=== PATIENT | female | born 1950 | race Caucasian/White ===

== ENCOUNTER 2022-10-12 22:09 | Emergency (ER) | payer OTHER ==
--- OUTSIDE RECORDS SUMMARY | 2022-10-12 22:20 | XMS REPORT | Continuity of Care Document ---
:1950 Author Organization [facility] t Address [address] [place] [address] [place] [id number] Care Team Providers Name Role Phone Sisi Canseco Primary Care Physician Sisi Canseco Attending Clinician Unavailable DAYAMI SINGH Attending Clinician Unavailable Carolyn Mcmillan MD Attending Clinician SHASTA LOWERY Attending Clinician Unavailable POPPY KELLEY Attending Clinician Unavailable Poppy Kelley MD Attending Clinician Geoff Ann MD Attending Clinician Hannah Vizcaino MD Attending Clinician Nhi Carrera MD Attending Clinician NHI CARRERA Attending Clinician Unavailable Nhi Carrera MD Attending Clinician JANI JOYNER Attending Clinician Unavailable Moy Salazar MD Attending Clinician BIN VIRGEN Attending Clinician Unavailable Bin Best Attending Clinician Doctor Unassigned, [place] Attending Clinician Unavailable Jani Joyner MD Attending Clinician DAYAMI SINGH M.D. Attending Clinician Unavailable POPPY KELLEY Admitting Clinician Unavailable Payers Payer Name Policy Type Policy Number Effective Date Expiration Date S frank AETNA CHOICE [id number] 2021 2021 POS II 00:00:00 00:00:00 AETNA MEDICARE [id number] 2021 PPO 00:00:00 AETNA MEDICARE [id number] 2021 HMO POS PPO 00:00:00 AETNA MEDICARE C1 [id number] 2015 Common Spi rit PPO 00:00:00 - [facility] MEDICARE PLAN [id number] PPO - AETNA Problems Condition Condition Condition Status Onset Resolution Last Treating Co mments Source Name Details Category Date Date Treatment Clinician Date Cardiac Cardiac Disease Active [facility] St sarcoidosi sarcoidosi 2-25 Kiersten kes s s 00:00: Medical 00 [place] Pacemaker Pacemaker Disease Active [facility] St 2-25 [facility] 00[facility] Medical 00 Center CHB CHB Disease Active [facility] (complete (complete 5-12 [place] [facility] heart heart 00:00: of block) block) 00 Medicin (HCCode) (HCCode) e PMT PMT Disease Active [facility] (pacemaker (pacemaker 5-12 Co llege -mediated -mediated 00:00: of tachycardi tachycardi 00 Me dicin a) a) e Seborrheic Seborrheic Problem Active U T keratosis keratosis Phys ici ans Actinic Actinic Problem Active [facility] keratoses keratoses Phys ici ans Onychoschi Onychoschi Problem Active U T miguel miguel Physici ans [id number] Menopausal Problem Co mmon and Spirit perimenopa - CHI usal [facility] [id number] Other Problem Common chronic Spirit pain - [facility] [id number] Primary Problem Common hypertensi Spirit on - [facility] [id number] Migraine Problem Comm on without Spirit aura and - [facility] without [facility] migrainosu Medica l s, not Center intractabl e [id number] Environmen Problem Co mmon santos Spirit allergies - [facility] [id number] 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 - CHI n internal St cardiac [facility] defibrilla Medica l tor (ICD) Center and pacemaker Allergies, Adverse Reactions, Alerts Allergy Allergy Status Severity Reaction(s) Onset Inactive Treating Comm ents Source Name Type Date Date Clinician TREE Allergy Active Med Other [facility] 09[facility]13 [facility] LM, 00:00: Medical CEDAR 00 Center Tree Drug Active Other (See migraine [facility] Pollen-[facility] Allergy Comments) 09-13 [facility] lm, 00:00: Medical [place] 00 [facility] [place] Allergy Active [facility] Cr[place] to 09-13 Health llia substanc 00:00: (Republic e 00 Elm) Skin Test Codeine Propensi Active Other (See Sleep Met hodi ty to Comments) 09-08 st adverse 00:00: Hospita reaction 00 l s to drug CODEINE DRUG Active Other-Cmnt Unive rs INGREDI 1-14 ity of 00:00: [place] 00 Medical Branch Codeine Propensi Active Other - See sleepy Un skyla ty to comments 1-14 ity of adverse 00:00: [place] reaction 00 Medical s Branch Codeine Allergy Active Other sleep UT to 5-12 extra Health substanc 00:00: long e 00 Codeine Propensi Active [facility] ty to 5-12 College adverse 00:00: of reaction 00 Medicin s to e drug CODEINE Allergy Active Med Other [facility]12 [facility] 00[facility] Medical 00 Center Codeine Drug Active Other (See sleepy CHI S t Allergy Comments) 11-30 [facility] 00:[facility]: Medical 00 Center NO KNOWN Drug Active Univers ALLERGIE Class ity of [facility] [place] [facility] [place] Social History Social Habit Start Date Stop Date Quantity Comments Source History of Common Spirit - Tobacco Use [facility] History SDOH [facility] Alcohol Frequency Medical Center History SDOH [facility] Alcohol Std Medical Cente r Drinks History SDOH [facility] Alcohol Binge Medical [facility] [facility] Exposure to 2022-05-08 2022-05-18 Not sure [facility] SARS-CoV-2 00:00:00 14:05:00 (event) Alcohol intake 2021-09-18 2021-09-18 Current drinker of [facility] 00:[facility] 00[facility]00:00 alcohol (finding) [facility] Center Tobacco use and 2021-09-13 2021-09-[address] Kiersten kes exposure 00:00:00 00:00:00 [facility] Alcohol Comment 2021-09-13 2021-09-[address] Kiersten kes 00:00:00 00:00:00 [facility] Sex Ass[birth year] At [birth year] [facility] 00:00[facility]00 00:[facility]:00 Hospital Smoking Status Start Date Stop Date Source Tobacco smoking [facility] consumption unknown Former Smoker 2022-05-29 00:00:00 2022-05-29 Common Spiri t [facility] nter Never smoked tobacco [facility] Medications Ordered Filled Start Stop Current Ordering Indication Dosage Frequency Signature Comments Components Source Medication Medication Date Date Medication? Clinician (SIG) Name Name Paxlovid Paxlovid 2021-07 No 3{table BID Paxlovid (300/100) (300/100) 1-09 ts} (300/100) 20 x 150 MG 20 x 150 MG 00:00: 20 x 150 & 10 x & 10 x 00 MG & 10 x 100MG 100MG 100MG SUMAtriptan Yes 50mg Take 50 mg UT (Imitrex) 8-01 by mouth. Healt h 50 MG 10:36: tablet 38 SUMAtriptan 0 Yes 50mg Take 50 mg UT (Imitrex) 8-01 by mouth. Healt h 50 MG 10:36: tablet 38 SUMAtriptan 0 Yes 50mg Take 50 mg UT (Imitrex) 8-01 by mouth. Healt h 50 MG 10:36: tablet 38 carvedilol Yes 6.25mg Q.5D Take 6.25 UT (Coreg) 7-25 mg by Health 6.25 MG 00:00: mouth in tablet 00 the morning and 6.25 mg before bedtime. carvedilol 2021-0 Yes 6.25mg Q.5D Take 6.25 UT (Coreg) 7-25 mg by Health 6.25 MG 00:00: mouth in tablet 00 the morning and 6.25 mg before bedtime. carvedilol 2021-0 Yes 6.25mg Q.5D Take 6.25 UT (Coreg) 7-25 mg by Health 6.25 MG 00:00: mouth in tablet 00 the morning and 6.25 mg before bedtime. Fyavolv Yes 1{tbl} QD Take 1 UT 0.5-2.5 7-05 tablet by Health MG-MCG 00:00: mouth 1 tablet 00 (one) time each day. Fyavolv 0 Yes 1{tbl} QD Take 1 UT 0.5-2.5 7-05 tablet by Health MG-MCG 00:00: mouth 1 tablet 00 (one) time each day. Fyavolv Yes 1{tbl} QD Take 1 UT 0.5-2.5 7-05 tablet by Health MG-MCG 00:00: mouth 1 tablet 00 (one) time each day. predniSONE Yes See UT (Deltasone) 7-04 administra He alth 1 MG tablet 00:00: tion 00 instructio ns. PLEASE SEE ATTACHED FOR DETAILED DIRECTIONS predniSONE 2021-0 Yes See UT (Deltasone) 704 administra He alth 1 MG tablet 00:00: tion 00 instructio ns. PLEASE SEE ATTACHED FOR DETAILED DIRECTIONS predniSONE 0 Yes See UT (Deltasone) 7-04 administra He alth 1 MG tablet 00:00: tion 00 instructio ns. PLEASE SEE ATTACHED FOR DETAILED DIRECTIONS mycophenola Yes 500mg Q.5D Take 500 U T te 7-01 mg by Health (Cellcept) 00:00: mouth in 500 MG 00 the tablet morning and 500 mg before bedtime. mycophenola 2021-0 Yes 500mg Q.5D Take 500 U T te 7-01 mg by Health (Cellcept) 00:00: mouth in 500 MG 00 the tablet morning and 500 mg before bedtime. mycophenola 2021-0 Yes 500mg Q.5D Take 500 U T te 7-01 mg by Health (Cellcept) 00:00: mouth in 500 MG 00 the tablet morning and 500 mg before bedtime. Eliquis 5 Yes 5mg Q.5D Take 5 mg UT MG tablet 5-31 by mouth 00:00: (two) 00 times a day. Eliquis 5 2021-0 Yes 5mg Q.5D Take 5 mg UT MG tablet 5-31 by mouth 2 Heal th 00:00: (two) 00 times a day. Eliquis 5 2021-0 Yes 5mg Q.5D Take 5 mg UT MG tablet 5-31 by mouth 2 Heal th 00:00: (two) 00 times a day. SUMAtriptan 2021-0 Yes 50mg Take [address] (IMITREX) 2-27 by mouth [facility] 50 MG 11:37: once as Medical tablet 04 needed for Center Headaches. cetirizine 2021-0 Yes 10mg Take [address] (ZyrTEC) 10 2-27 by mouth Luke s MG tablet 11:37: as needed Med ical 04 for Center Allergies. valsartan-h 2021-0 Yes 1{tbl} QD Take [address] ydrochlorot 2-27 tablet by Ilana es hiazide 11:37: mouth Medical (DIOVAN-HCT 04 daily. Center ) 320-25 mg per tablet Missing or [address] [facility] [facility] Non-Formula 2-27 replacemen Kiersten kes ry 11:37: t (name Medical Medication [address] to be given dos) . apixaban 2021-0 Yes 5mg Q.5D Take [address] (Eliquis) 5 2-27 by mouth 2 Kiersten kes mg Tab 11:37: (two) Medical tablet 04 times Center daily. SUMAtriptan 2021-0 Yes 50mg Take [address] (IMITREX) 2-27 by mouth [facility] 50 MG 11:37: once as Medical tablet 04 needed for Center Headaches. cetirizine 2021-0 Yes 10mg Take [address] (ZyrTEC) 10 2-27 by mouth Luke s MG tablet 11:37: as needed Med ical 04 for Center Allergies. valsartan-h 2021-0 Yes 1{tbl} QD Take [address] ydrochlorot 2-27 tablet by Ilana es hiazide 11:37: mouth Medical (DIOVAN-HCT 04 daily. Center ) 320-25 mg per tablet Missing or 2021-[address] Non-Formula 2-27 replacemen Kiersten kes ry 11:37: t (name Medical Medication [address] to be given dos) . apixaban 2022-0 Yes 5mg Q.5D Take [address] (Eliquis) 5 2-27 by mouth 2 Kiersten kes mg Tab 11:37: (two) Medical tablet 04 times Center daily. SUMAtriptan 2022-0 Yes 50mg Take [address] (IMITREX) 2-27 by mouth [facility] 50 MG 11:37: once as Medical tablet 04 needed for Center Headaches. cetirizine 2022-0 Yes 10mg Take [address] (ZyrTEC) 10 2-27 by mouth Luke s MG tablet 11:37: as needed Med ical 04 for Center Allergies. valsartan-h 2022-0 Yes 1{tbl} QD Take [address] ydrochlorot 2-27 tablet by Ilana es hiazide 11:37: mouth Medical (DIOVAN-HCT 04 daily. Center ) 320-25 mg per tablet Missing or [address] [facility] Non-Formula 2-27 replacemen Kiersten kes ry 11:37: t (name Medical Medication [address] to be given dos) . apixaban 2022-0 Yes 5mg Q.5D Take [address] (Eliquis) 5 2-27 by mouth 2 Kiersten kes mg Tab 11:37: (two) Medical tablet 04 times Center daily. SUMAtriptan 2-0 Yes 50mg Take [address] (IMITREX) 2-27 by mouth [facility] 50 MG 11:37: once as Medical tablet 04 needed for Center Headaches. cetirizine 2-0 Yes 10mg Take [address] (ZyrTEC) 10 2-27 by mouth Luke s MG tablet 11:37: as needed Med ical 04 for Center Allergies. valsartan-h 2022-0 Yes 1{tbl} QD Take [address] ydrochlorot 2-27 tablet by Ilana es hiazide 11:37: mouth Medical (DIOVAN-HCT 04 daily. Center ) 320-25 mg per tablet Missing or 2021-[address] Non-Formula 2-27 replacemen Kiersten kes ry 11:37: t (name Medical Medication [address] to be given dos) . apixaban 2022-0 Yes 5mg Q.5D Take [address] (Eliquis) 5 2-27 by mouth 2 Kiersten kes mg Tab 11:37: (two) Medical tablet 04 times Center daily. SUMAtriptan 2022-0 Yes 50mg Take [address] (IMITREX) 2-27 by mouth [facility] 50 MG 11:37: once as Medical tablet 04 needed for Center Headaches. cetirizine 2-0 Yes 10mg Take [address] (ZyrTEC) 10 2-27 by mouth Luke s MG tablet 11:37: as needed Med ical 04 for Center Allergies. valsartan-h 2021-0 Yes 1{tbl} QD Take [address] ydrochlorot 2-27 tablet by Ilana es hiazide 11:37: mouth Medical (DIOVAN-HCT 04 daily. Center ) 320-25 mg per tablet Missing or Yes Hormone [facility] Non-Formula 2-27 replacemen Kiersten kes ry 11:37: t (name Medical Medication [address] to be given dos) . apixaban 2-0 Yes 5mg Q.5D Take [address] (Eliquis) 5 2-27 by mouth 2 Kiersten kes mg Tab 11:37: (two) Medical tablet 04 times Center daily. SUMAtriptan 2021-0 Yes 50mg Take [address] (IMITREX) 2-27 by mouth [facility] 50 MG 11:37: once as Medical tablet 04 needed for Center Headaches. cetirizine 2-0 Yes 10mg Take [address] (ZyrTEC) 10 2-27 by mouth Luke s MG tablet 11:37: as needed Med ical 04 for Center Allergies. valsartan-h 2-0 Yes 1{tbl} QD Take [address] ydrochlorot 2-27 tablet by Ilana es hiazide 11:37: mouth Medical (DIOVAN-HCT 04 daily. Center ) 320-25 mg per tablet Missing or [address] [facility] Non-Formula 2-27 replacemen Kiersten kes ry 11:37: t (name Medical Medication [address] to be given dos) . apixaban 2022-0 Yes 5mg Q.5D Take [address] (Eliquis) 5 2-27 by mouth 2 Kiersten kes mg Tab 11:37: (two) Medical tablet 04 times Center daily. amLODIPine 2021-0 2022- No 5mg Q.5D Take [address] (NORVASC) 5 09-17- by mouth 2 L ukes MG tablet 11:37: 00:00 (two) Medica l 04 :00 times Center daily. amLODIPine 2021-0 2022- No 5mg Q.5D Take [address] (NORVASC) 5 09-17- by mouth 2 L ukes MG tablet 11:37: 00:00 (two) Medica l 04 :00 times Center daily. amLODIPine 2021-0 2022- No 5mg Q.5D Take [address] (NORVASC) 5 09-17- by mouth 2 L ukes MG tablet 11:37: 00:00 (two) Medica l 04 :00 times Center daily. amLODIPine 2021-0 2022- No 5mg Q.5D Take [address] (NORVASC) 5 -17 09- by mouth 2 L ukes MG tablet 11:37: 00:00 (two) Medica l 04 :00 times Center daily. amLODIPine 2021-0 2022- No 5mg Q.5D Take [address] (NORVASC) 5 09-17- by mouth 2 L ukes MG tablet 11:37: 00:00 (two) Medica l 04 :00 times Center daily. valsartan-h Yes TAKE 1 UT ydroCHLOROt 1-05 TABLET BY [facility] lth hiazide 00:00: MOUTH (Diovan-HCT 00 EVERY DAY ) 320-25 MG for 90 tablet valsartan-h Yes TAKE 1 UT ydroCHLOROt 1-05 TABLET BY a lt hiazide 00:00: MOUTH (Diovan-HCT 00 EVERY DAY ) 320-25 MG for 90 tablet valsartan-h Yes TAKE 1 UT ydroCHLOROt 1-05 TABLET BY [facility] hiazide 00:00: MOUTH (Diovan-HCT 00 EVERY DAY ) 320-25 MG for 90 tablet norethindro 2020-07 Yes 1{tbl} 1 tablet. Methodi ne ac-eth 0-13 [facility] estradioL 00:00: Hospita (Fyavolv) 00 l 0.5-2.5 mg-mcg per tablet norethindro 2020-07 Yes 1{tbl} 1 tablet. Methodi ne ac-eth 0-13 st estradioL 00:00: Hospita (Fyavolv) 00 l 0.5-2.5 mg-mcg per tablet norethindro 2020-07 Yes 1{tbl} 1 tablet. Methodi ne ac-eth 0-13 st estradioL 00:00: Hospita (Fyavolv) 00 l 0.5-2.5 mg-mcg per tablet norethindro 2020-07 Yes 1{tbl} 1 tablet. Methodi ne ac-eth 0-13 [facility] estradioL 00:00: Hospita (Fyavolv) 00 l 0.5-2.5 mg-mcg per tablet norethindro 2020-07 Yes 1{tbl} 1 tablet. Methodi ne ac-eth 0-13 st estradioL 00:00: Hospita (Fyavolv) 00 l 0.5-2.5 mg-mcg per tablet avolv avolv 2020-07 No 1{table QD Fyavolv 0.5-2.5 0.5-2.5 0-13 t} 0.5-2.5 MG-MCG MG-MCG 00:00: MG-MCG avolv avolv 2020-07 No 1{table QD Fyavolv 0.5-2.5 0.5-2.5 0-13 t} 0.5-2.5 MG-MCG MG-MCG 00:00: MG-MCG 00 avolv Fyavolv 2020-07 No 1{table QD Fyavolv 0.5-2.5 0.5-2.5 0-13 t} 0.5-2.5 MG-MCG MG-MCG 00:00: MG-MCG 00 avolv avolv 2020-07 No 1{table QD Fyavolv 0.5-2.5 0.5-2.5 0-13 t} 0.5-2.5 MG-MCG MG-MCG 00:00: MG-MCG 00 avolv avolv 2020-07 No 1{table QD 0.5-2.5 0.5-2.5 0-13 t} MG-MCG MG-MCG 00:00: 00 norethindro 2020-07 Yes 1{tbl} 1 tablet. Methodi ne ac-eth 0-13 [facility] estradioL 00:00: Hospita (Fyavolv) 00 l 0.5-2.5 mg-mcg per tablet amLODIPine 2020-0 Yes 1{tbl} 1 tablet. Methodi (NORVASC) 5 8-12 st mg tablet 00:00: Hospita 00 l amLODIPine 2020-0 Yes 1{tbl} 1 tablet. Methodi (NORVASC) 5 8-12 st mg tablet 00:00: Hospita 00 l amLODIPine 2020-0 Yes 1{tbl} 1 tablet. Methodi (NORVASC) 5 8-12 st mg tablet 00:00: Hospita 00 l amLODIPine 2020-0 Yes 1{tbl} 1 tablet. Methodi (NORVASC) 5 8-12 st mg tablet 00:00: Hospita 00 l amLODIPine 2020-0 Yes 1{tbl} 1 tablet. Methodi (NORVASC) 5 8-12 st mg tablet 00:00: Hospita 00 l amLODIPine 2020-0 Yes 1{tbl} 1 tablet. Methodi (NORVASC) 5 8-12 st mg tablet 00:00: Hospita 00 l valsartan-h 2020-1 Yes 1{tbl} QD Take 1 Me thodi ydrochlorot 2-[address] hiazide 00:00: mouth Hospita (DIOVAN-HCT 00 daily. l ) 320-25 mg per tablet valsartan-h 2019- Yes 1{tbl} QD Take 1 Me thodi ydrochlorot 2-[address] hiazide 00:00: mouth Hospita (DIOVAN-HCT 00 daily. l ) 320-25 mg per tablet valsartan-h 2020- Yes 1{tbl} QD Take 1 Me thodi ydrochlorot 2-[address] hiazide 00:00: mouth Hospita (DIOVAN-HCT 00 daily. l ) 320-25 mg per tablet valsartan-h 2019- Yes 1{tbl} QD Take 1 Me thodi ydrochlorot 2-[address] hiazide 00:00: mouth Hospita (DIOVAN-HCT 00 daily. l ) 320-25 mg per tablet valsartan-h 2019-07 Yes 1{tbl} QD Take 1 Me thodi ydrochlorot 2-[address] hiazide 00:00: mouth Hospita (DIOVAN-HCT 00 daily. l ) 320-25 mg per tablet valsartan-h 2019-07 Yes 1{tbl} Take 1 Un skyla ydrochlorot 2-22 tablet by ity of hiazide 00:00: mouth [place] 320-25 mg 00 daily. Medical per tablet Branch valsartan-h 2019-07 Yes 1{tbl} Take 1 Un skyla ydrochlorot 2-22 tablet by ity of hiazide 00:00: mouth [place] 320-25 mg 00 daily. Medical per tablet Branch valsartan-h 2019-07 Yes 1{tbl} Take 1 Un skyla ydrochlorot 2-22 tablet by ity of hiazide 00:00: mouth [place] 320-25 mg 00 daily. Medical per tablet Branch valsartan-h 2019-07 Yes 1{tbl} Take 1 Un skyla ydrochlorot 2-22 tablet by ity of hiazide 00:00: mouth [place] 320-25 mg 00 daily. Medical per tablet Branch valsartan-h 2019-07 Yes 1{tbl} Take 1 Un skyla ydrochlorot 2-22 tablet by ity of hiazide 00:00: mouth [place] 320-25 mg 00 daily. Medical per tablet Branch valsartan-h 2019-07 Yes 1{tbl} Take 1 Un skyla ydrochlorot 2-22 tablet by ity of hiazide 00:00: mouth [place] 320-25 mg 00 daily. Medical per tablet Branch valsartan-h 2019-07 Yes 1{tbl} Take 1 Un skyla ydrochlorot 2-22 tablet by ity of hiazide 00:00: mouth [place] 320-25 mg 00 daily. Medical per tablet Branch valsartan-h 2019-07 Yes 1{tbl} Take 1 Un skyla ydrochlorot 2-22 tablet by ity of hiazide 00:00: mouth [place] 320-25 mg 00 daily. Medical per tablet Branch valsartan-h 2019-07 Yes 1{tbl} Take 1 Un skyla ydrochlorot 2-22 tablet by ity of hiazide 00:00: mouth [place] 320-25 mg 00 daily. Medical per tablet Branch valsartan-h 2019-07 Yes 1{tbl} QD Take 1 Me thodi ydrochlorot 2-[address] hiazide 00:00: mouth Hospita (DIOVAN-HCT 00 daily. l ) 320-25 mg per tablet amLODIPine 2019-07 Yes 5mg Take 5 mg Un skyla 5 mg tablet 0-25 by mouth ity of 00:00: daily. [place] [facility] amLODIPine 2019-07 Yes 5mg Take 5 mg Un skyla 5 mg tablet 0-25 by mouth ity of 00:00: daily. [place] [facility] amLODIPine 2019-07 Yes 5mg Take 5 mg Un skyla 5 mg tablet 0-25 by mouth ity of 00:00: daily. [place] [facility] amLODIPine 2019-07 Yes 5mg Take 5 mg Un skyla 5 mg tablet 0-25 by mouth ity of 00:00: daily. [place] [facility] amLODIPine 2019-07 Yes 5mg Take 5 mg Un skyla 5 mg tablet 0-25 by mouth ity of 00:00: daily. [place] [facility] amLODIPine 2019-07 Yes 5mg Take 5 mg Un skyla 5 mg tablet 0-25 by mouth ity of 00:00: daily. [place] [facility] amLODIPine 2019-07 Yes 5mg Take 5 mg Un skyla 5 mg tablet 0-25 by mouth ity of 00:00: daily. [place] [facility] amLODIPine 2019-07 Yes 5mg Take 5 mg Un skyla 5 mg tablet 0-25 by mouth ity of 00:00: daily. [place] [facility] amLODIPine 2019-07 Yes 5mg Take 5 mg Un skyla 5 mg tablet 0-25 by mouth ity of 00:00: daily. [place] [facility] Cetirizine Yes Take by [facility] (ZYRTEC 8-20 mouth College OR) 19:15: daily. of 22 Medicin e valsartan-h Yes 1{tbl} Take 1 Tab [facility] ydrochlorot 8-20 by mouth [facility] hiazide 00:00: daily. of (DIOVAN-HCT 00 Medicin ) 320-25 MG e per tablet amlodipine 2020-0 Yes 5mg Take 1 Tab [facility] (NORVASC) 5 5-12 by mouth Lula ege MG tablet 00:00: daily. of 00 Medicin e amlodipine 2020-0 Yes 5mg Take 1 Tab [facility] (NORVASC) 5 5-12 by mouth Lula ege MG tablet 00:00: daily. of 00 Medicin e Diclofenac 2020-0 Yes daily. Unive rs Sodium 5-02 ity of (VOLTAREN) 00:00: [place] 1 % gel 00 Medical Branch Diclofenac 2020-0 Yes daily. Unive rs Sodium 5-02 ity of (VOLTAREN) 00:00: [place] 1 % gel 00 Medical Branch Diclofenac 2020-0 Yes daily. Unive rs Sodium 5-02 ity of (VOLTAREN) 00:00: [place] 1 % gel 00 Medical Branch Diclofenac 2020-0 Yes daily. Unive rs Sodium 5-02 ity of (VOLTAREN) 00:00: [place] 1 % gel 00 Medical Branch Diclofenac 2020-0 Yes daily. Unive rs Sodium 5-02 ity of (VOLTAREN) 00:00: [place] 1 % gel 00 Medical Branch Diclofenac 2020-0 Yes daily. Unive rs Sodium 5-02 ity of (VOLTAREN) 00:00: [place] 1 % gel 00 Medical Branch Diclofenac 2020-0 Yes daily. Unive rs Sodium 5-02 ity of (VOLTAREN) 00:00: [place] 1 % gel 00 Medical Branch Diclofenac 2020-0 Yes daily. Unive rs Sodium 5-02 ity of (VOLTAREN) 00:00: [place] 1 % gel 00 Medical Branch Diclofenac 2020-0 Yes daily. Unive rs Sodium 5-02 ity of (VOLTAREN) 00:00: [place] 1 % gel 00 Medical Branch Diclofenac 2020-0 Yes daily. [facility] Sodium 1 % 5-02 College GEL 00:00: of 00 Medicin e Diclofenac 2020-0 Yes daily. [facility] [facility] Sodium 1 % 5-02 College GEL 00:00: of 00 Medicin e valsartan-h 2020-0 Yes 1{tbl} Take 1 Tab [facility] ydrochlorot 4-16 by mouth Lula ege hiazide 00:00: daily. of (DIOVAN-HCT 00 Medicin ) 320-25 MG e per tablet valsartan-h 2019-0 2020- No 1{tbl} Take 1 Tab [facility] ydrochlorot 4-16 08-20 by mouth Col lege hiazide 00:00: 00:00 daily. of (DIOVAN-HCT 00 :00 Medicin ) 320-25 MG e per tablet SUMAtriptan 2020-0 Yes 50mg Take 50 mg Univers 50 mg 2-29 by mouth. ity of tablet 00:00: [place] [facility] Branch SUMAtriptan 2020-0 Yes 50mg Take 50 mg Univers 50 mg 2-29 by mouth. ity of tablet 00:00: [place] [facility] SUMAtriptan 2020-0 Yes 50mg Take 50 mg Univers 50 mg 2-29 by mouth. ity of tablet 00:00: [place] [facility] SUMAtriptan 2020-0 Yes 50mg Take 50 mg Univers 50 mg 2-29 by mouth. ity of tablet 00:00: [place] [facility] SUMAtriptan 2020-0 Yes 50mg Take 50 mg Univers 50 mg 2-29 by mouth. ity of tablet 00:00: [place] [facility] SUMAtriptan 2020-0 Yes 50mg Take 50 mg Univers 50 mg 2-29 by mouth. ity of tablet 00:00: [place] [facility] SUMAtriptan 2020-0 Yes 50mg Take 50 mg Univers 50 mg 2-29 by mouth. ity of tablet 00:00: [place] [facility] SUMAtriptan 2020-0 Yes 50mg Take 50 mg Univers 50 mg 2-29 by mouth. ity of tablet 00:00: [address] SUMAtriptan 2020-0 Yes 50mg Take 50 mg Univers 50 mg 2-29 by mouth. ity of tablet 00:00: [place] [facility] sumatriptan 2020-0 Yes 50mg Take 50 mg [facility] (IMITREX) 2-29 by mouth Colleg e 50 MG 00:00: once as of tablet 00 needed. Medicin e sumatriptan 2020-0 Yes 50mg Take 50 mg [facility] (IMITREX) 2-29 by mouth Colleg e 50 MG 00:00: once as of tablet 00 needed. Medicin e Hyzaar TABS Hyzaar TABS Yes U T Physici ans Diovan 320 Diovan 320 Yes UT MG Oral MG Oral Physici Tablet Tablet ans SUMAtriptan SUMAtriptan Yes U T Succinate Succinate Physi ci 25 MG Oral 25 MG Oral ans Tablet Tablet Formula B Formula B Yes UT TABS TABS Physici ans Carvedilol Carvedilol No 1{table BID Carvedilol 6.25 MG 6.25 MG t_with_ 6.25 MG food} amLODIPine amLODIPine No 1{table QD amLODIPine Besylate 5 Besylate 5 t} Besylate 5 MG MG MG Valsartan-h Valsartan-h No Valsartan- ydroCHLOROt ydroCHLOROt hydroCHLOR hiazide hiazide Othiazide 320-25 MG 320-25 MG 320-25 MG Femhrt Femhrt No Femhrt 0.5-2.5 0.5-2.5 0.5-2.5 MG-MCG MG-MCG MG-MCG Prednisone Prednisone No Prednisone 20 mg 20 mg 20 mg Eliquis 5 Eliquis 5 No Eliquis 5 MG MG MG Fyavolv Fyavolv No Fyavolv 0.5-2.5 0.5-2.5 0.5-2.5 MG-MCG MG-MCG MG-MCG Prednisone Prednisone No Prednisone 20 mg 20 mg 20 mg Eliquis 5 Eliquis 5 No Eliquis 5 MG MG MG Carvedilol Carvedilol No 1{table BID Carvedilol 6.25 MG 6.25 MG t_with_ 6.25 MG food} Femhrt Femhrt No Femhrt 0.5-2.5 0.5-2.5 0.5-2.5 MG-MCG MG-MCG MG-MCG SUMAtriptan SUMAtriptan No BID SUMAtripta Succinate Succinate n 50 MG 50 MG Succinate 50 MG amLODIPine amLODIPine No 1{table QD amLODIPine Besylate 5 Besylate 5 t} Besylate 5 MG MG MG Valsartan Valsartan No 1{table QD Valsartan 320 MG 320 MG t} 320 MG Fyavolv Fyavolv No Fyavolv 0.5-2.5 0.5-2.5 0.5-2.5 MG-MCG MG-MCG MG-MCG Prednisone Prednisone No Prednisone 20 mg 20 mg 20 mg Eliquis 5 Eliquis 5 No Eliquis 5 MG MG MG Carvedilol Carvedilol No 1{table BID Carvedilol 6.25 MG 6.25 MG t_with_ 6.25 MG food} Femhrt Femhrt No Femhrt 0.5-2.5 0.5-2.5 0.5-2.5 MG-MCG MG-MCG MG-MCG SUMAtriptan SUMAtriptan No BID SUMAtripta Succinate Succinate n 50 MG 50 MG Succinate 50 MG amLODIPine amLODIPine No 1{table QD amLODIPine Besylate 5 Besylate 5 t} Besylate 5 MG MG MG Valsartan Valsartan No 1{table QD Valsartan 320 MG 320 MG t} 320 MG Fyavolv Fyavolv No Fyavolv 0.5-2.5 0.5-2.5 0.5-2.5 MG-MCG MG-MCG MG-MCG Eliquis 5 Eliquis 5 No Eliquis 5 MG MG MG Prednisone Prednisone No Prednisone 20 mg 20 mg 20 mg Valsartan Valsartan No 1{table QD Valsartan 320 MG 320 MG t} 320 MG Femhrt Femhrt No Femhrt 0.5-2.5 0.5-2.5 0.5-2.5 MG-MCG MG-MCG MG-MCG SUMAtriptan SUMAtriptan No BID SUMAtripta Succinate Succinate n 50 MG 50 MG Succinate 50 MG amLODIPine amLODIPine No 1{table QD amLODIPine Besylate 5 Besylate 5 t} Besylate 5 MG MG MG Carvedilol Carvedilol No 1{table BID Carvedilol 6.25 MG 6.25 MG t_with_ 6.25 MG food} amLODIPine amLODIPine No 1{table QD amLODIPine Besylate 5 Besylate 5 t} Besylate 5 MG MG MG Femhrt Femhrt No Femhrt 0.5-2.5 0.5-2.5 0.5-2.5 MG-MCG MG-MCG MG-MCG SUMAtriptan SUMAtriptan No BID SUMAtripta Succinate Succinate n 50 MG 50 MG Succinate 50 MG Valsartan-h Valsartan-h No 1{table QD Valsartan- ydroCHLOROt ydroCHLOROt t} hydroCHLOR hiazide hiazide Othiazide 320-25 MG 320-25 MG 320-25 MG amLODIPine amLODIPine No 1{table QD amLODIPine Besylate 5 Besylate 5 t} Besylate 5 MG MG MG Femhrt Femhrt No Femhrt 0.5-2.5 0.5-2.5 0.5-2.5 MG-MCG MG-MCG MG-MCG SUMAtriptan SUMAtriptan No BID SUMAtripta Succinate Succinate n 50 MG 50 MG Succinate 50 MG Valsartan-h Valsartan-h No 1{table QD Valsartan- ydroCHLOROt ydroCHLOROt t} hydroCHLOR hiazide hiazide Othiazide 320-25 MG 320-25 MG 320-25 MG Femhrt Femhrt No Femhrt 0.5-2.5 0.5-2.5 0.5-2.5 MG-MCG MG-MCG MG-MCG Valsartan-h Valsartan-h No 1{table QD Valsartan- ydroCHLOROt ydroCHLOROt t} hydroCHLOR hiazide hiazide Othiazide 320-25 MG 320-25 MG 320-25 MG SUMAtriptan SUMAtriptan No BID SUMAtripta Succinate Succinate n 50 MG 50 MG Succinate 50 MG amLODIPine amLODIPine No 1{table QD amLODIPine Besylate 5 Besylate 5 t} Besylate 5 MG MG MG Femhrt Femhrt No Femhrt 0.5-2.5 0.5-2.5 0.5-2.5 MG-MCG MG-MCG MG-MCG Valsartan-h Valsartan-h No 1{table QD Valsartan- ydroCHLOROt ydroCHLOROt t} hydroCHLOR hiazide hiazide Othiazide 320-25 MG 320-25 MG 320-25 MG SUMAtriptan SUMAtriptan No BID SUMAtripta Succinate Succinate n 50 MG 50 MG Succinate 50 MG amLODIPine amLODIPine No 1{table QD amLODIPine Besylate 5 Besylate 5 t} Besylate 5 MG MG MG Femhrt Femhrt No Femhrt 0.5-2.5 0.5-2.5 0.5-2.5 MG-MCG MG-MCG MG-MCG amLODIPine amLODIPine No 1{table QD amLODIPine Besylate 5 Besylate 5 t} Besylate 5 MG MG MG SUMAtriptan SUMAtriptan No BID SUMAtripta Succinate Succinate n 50 MG 50 MG Succinate 50 MG Valsartan-h Valsartan-h No 1{table QD Valsartan- ydroCHLOROt ydroCHLOROt t} hydroCHLOR hiazide hiazide Othiazide 320-25 MG 320-25 MG 320-25 MG Femhrt Femhrt No 0.5-2.5 0.5-2.5 MG-MCG MG-MCG Valsartan-h Valsartan-h No ydroCHLOROt ydroCHLOROt hiazide hiazide 320-25 MG 320-25 MG SUMAtriptan SUMAtriptan No BID Succinate Succinate 50 MG 50 MG amLODIPine amLODIPine No 1{table QD Besylate 5 Besylate 5 t} MG MG SUMAtriptan SUMAtriptan No BID SUMAtripta Succinate Succinate n 50 MG 50 MG Succinate 50 MG Immunizations Ordered Immunization Filled Immunization Date Status Commen ts Source Name Name PFIZER READY TO USE 2021-11-20 Completed [facility]:00 Hospital VACCINATION PFIZER READY TO USE 2021-11-20 Completed [facility] COVID-[facility] 00:00:00 Hospital VACCINATION PFIZER READY TO USE 2021-11-20 Completed [facility] COVID-19 MRNA 00:00:00 Hospital VACCINATION PFIZER READY TO USE 2021-11-20 Completed [facility] COVID-19 MRNA 00:00:00 Hospital VACCINATION PFIZER READY TO USE 2021-11-20 Completed [facility] COVID-19 MRNA 00:00:00 Hospital VACCINATION PFIZER COVID-19 MRNA 2021-06-07 Completed [facility]:00 Hospital PFIZER COVID-19 MRNA 2021-06-07 Completed [facility] 00:00:00 Hospital PFIZER COVID-19 MRNA 2021-06-07 Completed [facility] VACC[facility] 00:00:00 Hospital PFIZER COVID-19 MRNA 2021-06-07 Completed [facility]ACC[facility] 00:00:00 Hospital PFIZER COVID-19 MRNA 2021-06-07 Completed [facility] 00:00:00 Hospital PFIZER COVID-19 MRNA 2021-06-07 Completed [facility] VACCINATION 00:00:00 [facility] FLUZONE HIGH DOSE FLUZONE HIGH DOSE 2021-05-03 [facility] - OVER [facility] OVER [facility] 08:[facility]:00 [facility] FLUZONE HIGH DOSE FLUZONE HIGH DOSE 2021-05-03 Completed [facility] - OVER [facility] OVER 65 08:56:00 [facility] FLUZONE HIGH DOSE FLUZONE HIGH DOSE 2021-05-03 Completed [facility] - OVER [facility] OVER 65 08:56:00 [facility] FLUZONE HIGH DOSE FLUZONE HIGH DOSE 2021-05-03 Completed [facility] - OVER [facility] OVER 65 08:56:00 [facility] FLUZONE HIGH DOSE FLUZONE HIGH DOSE 2021-05-03 Completed [facility] - OVER [facility] OVER 65 08:56:00 [facility] FLUZONE HIGH DOSE FLUZONE HIGH DOSE 2021-05-03 Completed [facility] - OVER [facility] OVER 65 08:56:00 [facility] FLUZONE HIGH DOSE FLUZONE HIGH DOSE 2021-05-03 Completed [facility] - OVER [facility] OVER 65 08:56:00 [facility] FLUZONE HIGH DOSE FLUZONE HIGH DOSE 2021-05-03 Completed [facility] - OVER 65 OVER 65 08:56:00 [place] [id number] 2020-09-10 Completed [facility] 00:00:00 [place] [id number] 2020-09-10 [facility] VACC[facility] 00:00:00 [place] [id number] 2020-09-10 Completed [facility] VACC[facility] 00:00:00 [place] [id number] 2020-09-10 Completed [facility] VACCINATION 00:00:00 [place] [id number] 2020-09-10 Completed [facility] VACCINATION 00:00:00 [place] [id number] 2020-09-10 Completed [facility] VACCINATION 00:00:00 [place] [id number] 2020-08-13 Completed [facility] VACCINATION 00:00:00 [place] [id number] 2020-08-13 Completed [facility] VACCINATION 00:00:00 [place] [id number] 2020-08-13 Completed [facility] VACCINATION 00:00:00 [place] [id number] 2020-08-13 Completed [facility] VACCINATION 00:00:00 [place] [id number] 2020-08-13 Completed [facility] 00:00:00 [facility] COVID-19 2020-08-13 Completed [facility]ACC[facility] 00:00:00 Hospital Vital Signs Vital Name Observation Time Observation Value Comments Source height 2022-05-30 09:20:00 64 [in_i] [facility] weight 2022-05-30 09:20:00 134 [lb_av] [facility] temperature 2022-05-30 09:20:00 97.7 [degF] [facility] bmi 2022-05-30 09:20:00 23 kg/m2 [facility] oximetry 2022-05-30 09:20:00 97 % [facility] Systolic blood 2022-04-25 14:47:00 191 mm[facility]Hg[facility] Diastolic blood 2022-04-25 14:47:00 112 mm[facility]Hg[facility] Heart rate 2022-04-25 14:47:00 67 [facility] 2022-04-25 14:47:00 [facility].78 [facility] height 2022-04-25 14:47:00 [facility]6 [facility] 2022-04-25 14:47:00 [facility]143 [facility] BMI 2022-04-25 14:47:00 [facility]52 [facility]22-[facility]-28 10:20:00 64 [in_i] [facility] weight 2022-02-28 10:20:00 136.8 [lb_av] [facility] temperature 2022-02-28 10:20:00 97.2 [degF] [facility] bmi 2022-02-28 10:20:00 23.48 kg/m2 [facility] oximetry 2022-02-28 10:20:00 98 % [facility] respiratory rate 2022-02-28 10:20:00 16 /min [facility] blood pressure 2022-02-28 10:20:00 138 mm[Hg] [facility] blood pressure 2022-02-28 10:20:00 80 mm[Hg] [facility] diastolic [facility] height 2021-11-27 09:40:00 64 [in_i] Common [facility] weight 2021-11-27 09:40:00 144 [lb_av] [facility] temperature 2021-11-27 09:40:00 97.2 [degF] Common [facility] bmi 2021-11-27 09:40:00 24.71 kg/m2 [facility] oximetry 2021-11-27 09:40:00 95 % [facility] respiratory rate 2021-11-27 09:40:00 16 /min [facility] blood pressure 2021-11-27 09:40:00 113 mm[Hg] [facility] blood pressure 2021-11-27 09:40:00 76 mm[Hg] [facility] HEIGHT 2021-09-15 06:05:00 162.6 cm WEIGHT 2021-09-15 06:05:00 66.2 kg WEIGHT 2021-09-13 13:04:00 65.772 kg HEIGHT 2021-09-13 13:04:00 162.6 cm HEIGHT 2021-09-15 06:05:00 162.6 cm WEIGHT 2021-09-15 06:05:00 66.2 kg WEIGHT 2021-09-13 13:04:00 65.772 kg HEIGHT 2021-09-13 13:04:00 162.6 cm height 2021-07-26 10:00:00 64 [in_i] [facility] weight 2021-07-26 10:00:00 147.8 [lb_av] [facility] temperature 2021-07-26 10:00:00 97.0 [degF] Common [facility] bmi 2021-07-26 10:00:00 25.37 kg/m2 [facility] oximetry 2021-07-26 10:00:00 98 % [facility] respiratory rate 2021-07-26 10:00:00 16 /min [facility] blood pressure 2021-07-26 10:00:00 126 mm[Hg] Common [facility] - systolic [facility] blood pressure 2021-07-26 10:00:00 62 mm[Hg] Common [facility] - diastolic [facility] height 2021-05-03 08:40:00 64 [in_i] Common [facility] weight 2021-05-03 08:40:00 147.4 [lb_av] [facility] temperature 2021-05-03 08:40:00 97.3 [degF] Common [facility] bmi 2021-05-03 08:40:00 25.3 kg/m2 [facility] oximetry 2021-05-03 08:40:00 98 % [facility] respiratory rate 2021-05-03 08:40:00 16 /min [facility] blood pressure 2021-05-03 08:40:00 133 mm[Hg] Common [facility] - systolic [facility] blood pressure 2021-05-03 08:40:00 83 mm[Hg] Common [facility] - diastolic [facility] Systolic blood 2020-09-14 20:59:00 101 mm[Hg] [facility] Diastolic blood 2020-09-14 20:59:00 71 mm[Hg] [facility] Body height 2020-09-14 20:59:00 162.6 cm [facility] Body weight 2020-09-14 20:59:00 65.772 kg [facility] BMI 2020-09-14 20:59:00 24.89 kg/m2 [facility] Systolic blood 2020-08-11 19:13:00 118 mm[Hg] Univer [facility]ity of pressure [facility] Diastolic blood 2020-08-11 19:13:00 80 mm[Hg] Unive rsity of pressure [facility] Heart rate 2020-08-11 19:13:00 94 /min [facility] Body height 2020-08-11 19:13:00 162.6 cm [facility] Body weight 2020-08-11 19:13:00 65.772 kg [facility] BMI 2020-08-11 19:13:00 24.89 kg/m2 [facility] Systolic blood 2020-08-04 14:54:00 126 mm[Hg] Univer sity of pressure [facility] Diastolic blood 2020-08-04 14:54:00 84 mm[Hg] Unive rsity of pressure [facility] Heart rate 2020-08-04 14:54:00 86 /min [facility] Body height 2020-08-04 14:49:00 162.6 cm [facility] Body weight 2020-08-04 14:49:00 65.772 kg [facility] BMI 2020-08-04 14:49:00 24.89 kg/m2 [facility] Systolic blood 2020-03-10 19:23:00 120 mm[Hg] [facility] of pressure Medicine Diastolic blood 2020-03-10 19:23:00 100 mm[Hg] [facility] pressure Medicine Heart rate 2020-03-10 19:14:00 72 /min [facility] Body height 2020-03-10 19:14:00 162.6 cm [facility] Body weight 2020-03-10 19:14:00 66.225 kg [facility] BMI 2020-03-10 19:14:00 25.06 kg/m2 [facility] Systolic blood 2019-12-01 19:38:00 130 mm[Hg] [facility] pressure Medicine Diastolic blood 2019-12-01 19:38:00 110 mm[Hg] [facility] pressure Medicine Heart rate 2019-12-01 19:26:00 61 /min [facility] Body height 2019-12-01 19:26:00 162.6 cm [facility] Body weight 2019-12-01 19:26:00 66.679 kg [facility] BMI 2019-12-01 19:26:00 25.23 kg/m2 [facility] Systolic blood 2022-07-02 19:48:00 144 mm[Hg] [facility] pressure Diastolic blood 2022-07-02 19:48:00 91 mm[Hg] [facility] pressure Heart rate 2022-07-02 19:48:00 60 /min [facility] Respiratory rate 2022-07-02 19:48:00 18 /min [facility] Body height 2022-07-02 19:48:00 162.6 cm [facility] Body weight 2022-07-02 19:48:00 60.782 kg [facility] BMI 2022-07-02 19:48:00 23.00 kg/m2 [facility] Oxygen saturation in 2022-07-02 19:48:00 96 /min [facility] Arterial blood by Pulse oximetry Systolic blood 2022-02-20 15:17:00 154 mm[Hg] [facility] Hospital pressure Diastolic blood 2022-02-20 15:17:00 80 mm[Hg] [facility] pressure Heart rate 2022-02-20 15:17:00 66 /min [facility] Respiratory rate 2022-02-20 15:17:00 18 /min [facility] Oxygen saturation in 2022-02-20 15:17:00 99 /min [facility] Arterial blood by Pulse oximetry Body weight 2022-02-20 13:48:00 60.782 kg [facility] BMI 2022-02-20 13:48:00 23.00 kg/m2 [facility] Systolic blood 2021-09-16 07:27:00 119 mm[Hg] [facility] Diastolic blood 2021-09-16 07:27:00 60 mm[Hg] [facility] Heart rate 2021-09-16 07:27:00 68 /min [facility] Body temperature 2021-09-16 07:27:[address] [facility] Respiratory rate 2021-09-16 07:27:00 18 /min [facility] Oxygen saturation in 2021-09-16 07:27:00 95 /min [facility] Arterial blood by Medical Ce nter Pulse oximetry Body height 2021-09-15 06:05:00 162.6 cm [facility] Body weight 2021-09-15 06:05:00 66.2 kg [facility] BMI 2021-09-15 06:05:00 25.04 kg/m2 [facility] Body height 2021-09-08 15:19:00 162.6 cm [facility] Procedures Procedure Date / Time Performing Clinician Source Performed CV CARDIAC PET SARCOIDOSIS 2022-07-02 21:13:42 [facility] ASSESSMENT BETA HYDROXYBUTYRATE 2022-07-02 18:53:00 [facility] GLUCOSE LEVEL 2022-07-02 18:53:00 [facility] CV CARDIAC PET STRESS TEST 2022-02-20 17:29:46 [facility] CV MYOCARD PERF IMG W SARC 2022-02-20 17:29:46 [facility] ASSESSMENT BETA HYDROXYBUTYRATE 2022-02-20 13:56:00 [facility] GLUCOSE LEVEL 2022-02-20 13:56:00 [facility] CBC (HEMOGRAM ONLY) 2021-09-16 05:56:00 Poppy Kelley [facility] BASIC METABOLIC PANEL 2021-09-16 05:56:[address] [facility] LIMITED 2D ECHOCARDIOGRAM 2021-09-15 15:01:[address] [facility] XR CHEST 1 VIEW PORTABLE / 2021-09-15 12:33:00 Poppy Kelley [facility] PREPARE RBC 2021-09-15 11:50:00 Poppy Kelley [facility] POTASSIUM-STAT LAB 2021-09-15 10:55:43 Geoff Ann [facility] RRL CRITICAL LABS 2021-09-15 09:33:19 Jenn Suresh [facility] (ABG,NA,K,H&H,GLUCOSE) [place] CALCIUM, IONIZED 2021-09-15 09:33:19 Jenn Suresh [facility] BLOOD GAS, ARTERIAL 2021-09-15 09:33:19 Jenn Suresh [facility] SODIUM NA-STAT LAB 2021-09-15 09:33:[address] [facility] POTASSIUM-STAT LAB 2021-09-15 09:33:[address] [facility] GLUCOSE-STAT LAB 2021-09-15 09:33:19 Kerwin [facility] HGB/HCT (H&H) - STAT LAB 2021-09-15 09:33:19 [facility] 2021-09-15 08:43:41 Jenn Suresh [facility] EXTRACTION, ELECTRODE 2021-09-15 07:29:00 [facility] USING LASER Center ECHOCARDIOGRAM, 2021-09-15 07:29:00 Poppy Kelley [place] [facility] TRANSESOPHAGEAL Center ABORH, MANUAL 2021-09-15 07:01:[address] [facility] BASIC METABOLIC PANEL 2021-09-15 06:29:00 Poppy Kelley [facility] CBC W/PLT COUNT & AUTO 2021-09-15 06:29:00 Poppy Kelley [facility] PROTHROMBIN TIME/INR 2021-09-15 06:29:00 Poppy Kelley [facility] HEMOGLOBIN A1C 2021-09-15 06:29:00 Poppy Kelley [facility] TYPE AND SCREEN, AUTOMATED 2021-09-15 06:29:00 Poppy Kelley [facility] CBC W/PLT COUNT & AUTO 2021-09-15 06:29:00 Poppy Kelley [facility] POCT-GLUCOSE METER 2021-09-15 06:01:[address] [facility] ARRYTHMIA IMPLANT REPORT - 2021-09-15 00:00:00 Provider, Corinne [facility] SCAN Scanning Center EKG-SCANNED 2021-09-15 00:00:00 Provider, Corinne [facility] CV CARDIAC PET SARCOIDOSIS 2021-09-08 18:40:12 Deandre [facility] ASSESSMENT BETA HYDROXYBUTYRATE 2021-09-08 15:30:00 [place] [facility] 2021-09-08 15:30:00 [facility] XR CHEST 2 VIEWS 2021-08-16 09:42:00 [place] [facility] XR WRIST <3 VW LEFT 2020-09-14 21:10:06 Moy Salazar [facility] XR WRIST <3 VW LEFT 2020-08-11 19:08:22 Moy Salazar [facility] XR WRIST <3 VW LEFT 2020-08-04 15:05:04 Bin Virgen [facility] ASSIGNMENT OF BENEFITS 2020-08-04 14:32:48 Doctor Unassigned, Un [facility] Plan of Care Planned Activity Planned Date Details Comments Source Future Scheduled 2022-09-[address] [facility] Test 00:00:00 Counseling and Screening Med [facility] (12+) [code = Tobacco Cessation Counseling and Screening (12+)] Future Scheduled 2022-09-[address] [facility] Test 00:00:00 Counseling and Screening Med ical Center (12+) [code = Tobacco Cessation Counseling and Screening (12+)] Future Scheduled 2022-09-[address] [facility] Test 00:00:00 Counseling and Screening Med ical Center (12+) [code = Tobacco Cessation Counseling and Screening (12+)] Future Scheduled 2022-09-[address] [facility] Test 00:00:00 Counseling and Screening Med ical Center (12+) [code = Tobacco Cessation Counseling and Screening (12+)] Future Scheduled 2022-09-[address] [facility] Test 00:00:00 Counseling and Screening [facility] (12+) [code = Tobacco Cessation Counseling and Screening (12+)] Future Scheduled 2022-09-06 Hepatitis C screening [facility] 17:39:17 (procedure) [code = Hospital [id number]] Future Scheduled 2022-09-06 BREAST CANCER SCREENING [facility] 17:39:17 [code = BREAST CANCER Hospit al SCREENING] Future Scheduled 2022-09-06 COLONOSCOPY SCREENING [facility] 17:39:17 [code = COLONOSCOPY Hospital SCREENING] Future Scheduled 2022-09-06 SHINGLES VACCINES (1 of [facility] 17:39:17 2) [code = SHINGLES Hospital VACCINES (1 of 2)] Future Scheduled 2022-09-06 65+ PNEUMOCOCCAL VACCINE [facility] 17:39:17 (1 - PCV) [code = 65+ Hospit al PNEUMOCOCCAL VACCINE (1 - PCV)] Future Scheduled 2022-07-26 Hepatitis C screening [facility] 13:32:17 (procedure) [code = Hospital [id number]] Future Scheduled 2022-07-26 BREAST CANCER SCREENING [facility] 13:32:17 [code = BREAST CANCER Hospit al SCREENING] Future Scheduled 2022-07-26 COLONOSCOPY SCREENING [facility] 13:32:17 [code = COLONOSCOPY Hospital SCREENING] Future Scheduled 2022-07-26 SHINGLES VACCINES (1 of [facility] 13:32:17 2) [code = SHINGLES Hospital VACCINES (1 of 2)] Future Scheduled 2022-07-26 65+ PNEUMOCOCCAL VACCINE [facility] 13:32:17 (1 - PCV) [code = 65+ Hospit al PNEUMOCOCCAL VACCINE (1 - PCV)] Future Scheduled 2022-07-26 Hepatitis C screening [facility] 13:32:17 (procedure) [code = Hospital [id number]] Future Scheduled 2022-07-26 BREAST CANCER SCREENING [facility] 13:32:17 [code = BREAST CANCER Hospit al SCREENING] Future Scheduled 2022-07-26 COLONOSCOPY SCREENING [facility] 13:32:17 [code = COLONOSCOPY Hospital SCREENING] Future Scheduled 2022-07-26 SHINGLES VACCINES (1 of [facility] 13:32:17 2) [code = SHINGLES Hospital VACCINES (1 of 2)] Future Scheduled 2022-07-26 65+ PNEUMOCOCCAL VACCINE [facility] 13:32:17 (1 - PCV) [code = 65+ Hospit al PNEUMOCOCCAL VACCINE (1 - PCV)] Future Scheduled 2022-07-26 Hepatitis C screening [facility] 13:32:17 (procedure) [code = Hospital [id number]] Future Scheduled 2022-07-26 BREAST CANCER SCREENING [facility] 13:32:17 [code = BREAST CANCER Hospit al SCREENING] Future Scheduled 2022-07-26 COLONOSCOPY SCREENING [facility] 13:32:17 [code = COLONOSCOPY Hospital SCREENING] Future Scheduled 2022-07-26 SHINGLES VACCINES (1 of [facility] 13:32:17 2) [code = SHINGLES Hospital VACCINES (1 of 2)] Future Scheduled 2022-07-26 65+ PNEUMOCOCCAL VACCINE [facility] 13:32:17 (1 - PCV) [code = 65+ Hospit al PNEUMOCOCCAL VACCINE (1 - PCV)] Future Scheduled 2022-07-25 Hepatitis C screening [facility] 17:55:03 (procedure) [code = Hospital [id number]] Future Scheduled 2022-07-25 BREAST CANCER SCREENING [facility] 17:55:03 [code = BREAST CANCER Hospit al SCREENING] Future Scheduled 2022-07-25 COLONOSCOPY SCREENING [facility] 17:55:03 [code = COLONOSCOPY Hospital SCREENING] Future Scheduled 2022-07-25 SHINGLES VACCINES (1 of [facility] 17:55:03 2) [code = SHINGLES Hospital VACCINES (1 of 2)] Future Scheduled 2022-07-25 65+ PNEUMOCOCCAL VACCINE [facility] 17:55:03 (1 - PCV) [code = 65+ Hospit al PNEUMOCOCCAL VACCINE (1 - PCV)] Future Scheduled 2022-07-[address]NUAL WELLNESS [facility] Test 00:00:00 (YEAR 2 or FIRST YEAR if Med ical Center no IPPE) [code = MEDICARE ANNUAL WELLNESS (YEAR 2 or FIRST YEAR if no IPPE)] Future Scheduled 2022-07-[address]NESS [facility] Test 00:00:00 (YEAR 2 or FIRST YEAR if Med ical Center no IPPE) [code = MEDICARE ANNUAL WELLNESS (YEAR 2 or FIRST YEAR if no IPPE)] Future Scheduled 2022-07-[address] WE[address]NESS [facility] Test 00:00:00 (YEAR 2 or FIRST YEAR if Med ical Center no IPPE) [code = MEDICARE ANNUAL WELLNESS (YEAR 2 or FIRST YEAR if no IPPE)] Future Scheduled 2022-07-[address] [facility] Test 00:00:00 (12+) [code = DEPRESSION Med ical Center SCREENING (12+)] Future Scheduled 2022-07-[address] F[address]S [address]K SCREENING [facility] Test 00:00:00 [code = FALLS RISK Medical C enter SCREENING] Future Scheduled 2022-07-[address] [facility] Test 00:00:00 (12+) [code = DEPRESSION Med ical Center SCREENING (12+)] Future Scheduled 2022-07-22 FALLS RISK SCREENING [facility] Test 00:00:00 [code = FALLS RISK Medical C enter SCREENING] Future Scheduled 2022-07-[address] [facility] Test 00:00:00 (12+) [code = DEPRESSION Med ical Center SCREENING (12+)] Future Scheduled 2022-07-22 FALLS RISK SCREENING [facility] Test 00:00:00 [code = FALLS RISK Medical C enter SCREENING] Future Scheduled 2022-04-10 HEPATITIS B VACCINES (1 [facility] 15:05:17 of 3 - 3-dose series) Hospit al [code = HEPATITIS B VACCINES (1 of 3 - 3-dose series)] Future Scheduled 2022-04-10 Hepatitis C screening [facility] 15:05:17 (procedure) [code = Hospital [id number]] Future Scheduled 2022-04-10 BREAST CANCER SCREENING [facility] 15:05:17 [code = BREAST CANCER Hospit al SCREENING] Future Scheduled 2022-04-10 COLONOSCOPY SCREENING [facility] 15:05:17 [code = COLONOSCOPY Hospital SCREENING] Future Scheduled 2022-04-10 SHINGLES VACCINES (1 of [facility] 15:05:17 2) [code = SHINGLES Hospital VACCINES (1 of 2)] Future Scheduled 2022-04-10 65+ PNEUMOCOCCAL VACCINE [facility] 15:05:17 (1 - PCV) [code = 65+ Hospit al PNEUMOCOCCAL VACCINE (1 - PCV)] Future Scheduled 2022-04-10 COVID-19 VACCINE (5 - [facility] 15:05:17 [facility] series) [code = COVID-19 VACCINE (5 - [facility] series)] Future Scheduled 2022-04-10 INFLUENZA VACCINE [code = [facility] 15:05:17 INFLUENZA VACCINE] Hospital Future Scheduled 2022-03-22 INFLUENZA VACCINE (#1[facility] [code = INFLUENZA VACCINE Me [facility] Center (#1)] Future Scheduled 2022-03-22 INFLUENZA VACCINE (#1) [facility] 00:[facility] [code = INFLUENZA VACCINE Me [facility] Center (#1)] Future Scheduled 2022-03-22 INFLUENZA VACCINE (#1) [facility] 00:00[facility] [code = INFLUENZA VACCINE Me [facility]ical Center (#1)] Future Scheduled 2022-03-22 INFLUENZA VACCINE (#1) [facility] 00:00[facility] [code = INFLUENZA VACCINE Me [facility]ical Center (#1)] Future Scheduled 2022-03-22 INFLUENZA VACCINE (#1) [facility] 00:[facility] [code = INFLUENZA VACCINE Me [facility] Center (#1)] Future Scheduled 2022-03-22 INFLUENZA VACCINE (#1) [facility] 00:[facility] [code = INFLUENZA VACCINE Me [facility]ical Center (#1)] Future Scheduled 2021-10-05 COVID-19 VACCINE (4 - [facility] series) [code = COVID-19 VACCINE (4 - [facility] series)] Future Scheduled 2021-10-05 COVID-19 VACCINE (4 - [facility]) [code = COVID-19 VACCINE (4 - [facility] series)] Future Scheduled 2021-10-05 COVID-19 VACCINE (4 - [facility] series) [code = COVID-19 VACCINE (4 - [facility] series)] Future Scheduled 2021-10-05 COVID-19 VACCINE (4 - [facility] series) [code = COVID-19 VACCINE (4 - [facility] series)] Future Scheduled 2021-10-05 COVID-19 VACCINE (4 - [facility] 00[facility] series) [code = COVID-19 VACCINE (4 - [facility] series)] Future Scheduled 2021-08-02 COVID-19 VACCINE (4 - [facility] 00[facility] series) [code = COVID-19 VACCINE (4 - [facility] series)] Future Scheduled 2021-07-22 Medicare IPPE (WELCOME TO [facility] 00:00:00 MEDICARE) [code = Medical Ce nter Medicare IPPE (WELCOME TO MEDICARE)] Future Scheduled 2021-07-22 Medicare IPPE ([facility]EL[facility]E TO [facility] 00:00:00 MEDICARE) [code = Medical Ce nter Medicare IPPE (WELCOME TO MEDICARE)] Future Scheduled 2021-07-22 Medicare IPPE (WELCOME TO [facility] 00:00:00 MEDICARE) [code = Medical Ce nter Medicare IPPE (WELCOME TO MEDICARE)] Future Scheduled 2015-12-30 PNEUMOCOCCAL 65+ YRS (1 - [facility] 00:00:00 PCV) [code = PNEUMOCOCCAL Me dical Center 65+ YRS (1 - PCV)] Future Scheduled 2015-12-30 PNEUMOCOCCAL 65+ YRS (1 - [facility] 00:00:00 PCV) [code = PNEUMOCOCCAL Me dical Center 65+ YRS (1 - PCV)] Future Scheduled 2015-12-30 PNEUMOCOCCAL 65+ YRS (1 - [facility] 00:00:00 PCV) [code = PNEUMOCOCCAL Me dical Center 65+ YRS (1 - PCV)] Future Scheduled 2015-12-30 PNEUMOCOCCAL 65+ YRS (1 - [facility] 00:00:00 PCV) [code = PNEUMOCOCCAL Me dical Center 65+ YRS (1 - PCV)] Future Scheduled 2015-12-30 PNEUMOCOCCAL 65+ YRS (1 - [facility] 00:00:00 PCV) [code = PNEUMOCOCCAL Me dical Center 65+ YRS (1 - PCV)] Future Scheduled 2015-12-30 PNEUMOCOCCAL 65+ YRS (1 - [facility] 00:00:00 PCV) [code = PNEUMOCOCCAL Me dical Center 65+ YRS (1 - PCV)] Future Scheduled 2000 SHINGLES VACCINES ([address] [facility] 00:00:00 2) [code = SHINGLES Medical Center VACCINES (1 of 2)] Future Scheduled 2000 SHINGLES VACCINES ([address] [facility] 00:00:00 2) [code = SHINGLES Medical Center VACCINES (1 of 2)] Future Scheduled 2000 SHINGLES VACCINES ([address] [facility] 00:00:00 2) [code = SHINGLES Medical Center VACCINES (1 of 2)] Future Scheduled 2000 SHINGLES VACCINES ([address] [facility] 00:00:00 2) [code = SHINGLES Medical Center VACCINES (1 of 2)] Future Scheduled 2000 SHINGLES VACCINES ([address] [facility] 00:00:00 2) [code = SHINGLES Medical Center VACCINES (1 of 2)] Future Scheduled 2000 SHINGLES VACCINES ([address] [facility] 00:00:00 2) [code = SHINGLES Medical Center VACCINES (1 of 2)] Future Scheduled 1969 DTAP/TDAP/TD VACCINES ([address] [facility] 00:00:00 - Tdap) [code = Medical Cent er DTAP/TDAP/TD VACCINES (1 - Tdap)] Future Scheduled 1969 DTAP/TDAP/TD VACCINES ([address] [facility] 00:00:00 - Tdap) [code = Medical Cent er DTAP/TDAP/TD VACCINES (1 - Tdap)] Future Scheduled 1969 DTAP/TDAP/TD VACCINES ([address] [facility] 00:00:00 - Tdap) [code = Medical Cent er DTAP/TDAP/TD VACCINES (1 - Tdap)] Future Scheduled 1969 DTAP/TDAP/TD VACCINES ([address] [facility] 00:00:00 - Tdap) [code = Medical Cent er DTAP/TDAP/TD VACCINES (1 - Tdap)] Future Scheduled 1969 DTAP/TDAP/TD VACCINES ([address] [facility] 00:00:00 - Tdap) [code = Medical Cent er DTAP/TDAP/TD VACCINES (1 - Tdap)] Future Scheduled 1969 DTAP/TDAP/TD VACCINES ([address] [facility] 00:00:00 - Tdap) [code = Medical Cent er DTAP/TDAP/TD VACCINES (1 - Tdap)] Future Scheduled 1968 HEPATITIS C [facility]CRE[facility]ING [facility] 00:00[facility] [code = HEPATITIS C Medical Center SCREENING] Future Scheduled 1968 HEPATITIS C [facility]ING [facility] 00:00:00 [code = HEPATITIS C Medical Center SCREENING] Future Scheduled 1968 HEPATITIS C [facility]ING [facility] 00:00:00 [code = HEPATITIS C Medical Center SCREENING] Future Scheduled 1968 HEPATITIS C [facility]ING [facility] 00:00:00 [code = HEPATITIS C Medical Center SCREENING] Future Scheduled 1968 HEPATITIS C [facility] 00:00:00 [code = HEPATITIS C Medical Center SCREENING] Future Scheduled 1968 HE[facility]ITIS C [facility] 00:00:[facility] [code = HEPATITIS C Medical Center SCREENING] Future Scheduled 1950 Screening for malignant [facility] 00:00:00 neoplasm of breast Medical C enter (procedure) [code = 043020601] Future Scheduled 1950 CT Colonography (combo) [facility] 00:00:00 [code = CT Colonography [facility] (combo)] Future Scheduled 1950 Screening for malignant [facility] 00:00:00 neoplasm of colon Medical Ce nter (procedure) [code = 096290422] Future Scheduled 1950 Screening for malignant [facility] 00:00:00 neoplasm of colon Medical Ce nter (procedure) [code = 464088187] Future Scheduled 1950 DXA SCAN [code = DXA [facility] 00:00:00 SCAN] Medical Center Future Scheduled 1950 Screening for malignant [facility] 00:00:00 neoplasm of colon Medical Ce nter (procedure) [code = 780993881] Future Scheduled 1950 Screening for malignant [facility] 00:00:00 neoplasm of colon Medical Ce nter (procedure) [code = 457424055] Future Scheduled 1950 Sigmoidoscopy [code = [facility] 00:[facility] Sigmoidoscopy] [facility] r Future Scheduled 1950 Screening for malignant [facility] 00:00:00 neoplasm of breast Medical C enter (procedure) [code = 451752775] Future Scheduled 1950 CT Colonography (combo) [facility] 00:00:00 [code = CT Colonography [facility] (combo)] Future Scheduled 1950 Screening for malignant [facility] 00:00:00 neoplasm of colon Medical Ce nter (procedure) [code = 133270041] Future Scheduled 1950 Screening for malignant [facility] 00:00:00 neoplasm of colon Medical Ce nter (procedure) [code = 613026438] Future Scheduled 1950 DXA SCAN [code = DXA [facility] 00:00:00 SCAN] [facility] Future Scheduled 1950 Screening for malignant [facility] 00:00:00 neoplasm of colon Medical Ce nter (procedure) [code = 678168546] Future Scheduled 1950 Screening for malignant [facility] 00:00:00 neoplasm of colon Medical Ce nter (procedure) [code = 192654309] Future Scheduled 1950 Sigmoidoscopy [code = [facility] 00:[facility] S[facility]oidoscopy] [facility] Future Scheduled 1950 Screening for malignant [facility] 00:00:00 neoplasm of breast Medical C enter (procedure) [code = 120576625] Future Scheduled 1950 CT Colonography (combo) [facility] 00:00:00 [code = CT Colonography [facility] (combo)] Future Scheduled 1950 Screening for malignant [facility] 00:00:00 neoplasm of colon Medical Ce nter (procedure) [code = 829322317] Future Scheduled 1950 Screening for malignant [facility] 00:00:00 neoplasm of colon Medical Ce nter (procedure) [code = 125499668] Future Scheduled 1950 DXA SCAN [code = DXA [facility] 00:00:00 SCAN] [facility] Future Scheduled 1950 Screening for malignant [facility] 00:00:00 neoplasm of colon Medical Ce nter (procedure) [code = 516818060] Future Scheduled 1950 Screening for malignant [facility] 00:00:00 neoplasm of colon Medical Ce nter (procedure) [code = 193093998] Future Scheduled 1950 Sigmoidoscopy [code = [facility] 00:[facility] S[facility]oidoscopy] [facility] Future Scheduled 1950 Screening for malignant [facility] 00:00:00 neoplasm of breast Medical C enter (procedure) [code = 358657133] Future Scheduled 1950 CT Colonography (combo) [facility] 00:00:00 [code = CT Colonography [facility] (combo)] Future Scheduled 1950 Screening for malignant [facility] 00:00:00 neoplasm of colon Medical Ce nter (procedure) [code = 997309198] Future Scheduled 1950 Screening for malignant [facility] 00:00:00 neoplasm of colon Medical Ce nter (procedure) [code = 081680133] Future Scheduled 1950 DXA SCAN [code = DXA [facility] 00:00:00 SCAN] [facility] Future Scheduled 1950 Screening for malignant [facility] 00:00:00 neoplasm of colon Medical Ce nter (procedure) [code = 151362438] Future Scheduled 1950 Screening for malignant [facility] 00:00:00 neoplasm of colon Medical Ce nter (procedure) [code = 548294920] Future Scheduled 1950 Sigmoidoscopy [code = [facility] 00:[facility] Sigmoidoscopy] Medical [facility] Future Scheduled 1950 Screening for malignant [facility] 00:00:00 neoplasm of breast Medical C enter (procedure) [code = 771316240] Future Scheduled 1950 CT Colonography (combo) [facility] 00:00:00 [code = CT Colonography [facility] (combo)] Future Scheduled 1950 Screening for malignant [facility] 00:00:00 neoplasm of colon Medical Ce nter (procedure) [code = 090331406] Future Scheduled 1950 Screening for malignant [facility] 00:00:00 neoplasm of colon Medical Ce nter (procedure) [code = 759674660] Future Scheduled 1950 DXA SCAN [code = DXA [facility] 00:00:00 SCAN] [facility] Future Scheduled 1950 Screening for malignant [facility] 00:00:00 neoplasm of colon Medical Ce nter (procedure) [code = 667727689] Future Scheduled 1950 Screening for malignant [facility] 00:00:00 neoplasm of colon Medical Ce nter (procedure) [code = 050282865] Future Scheduled 1950 Sigmoidoscopy [code = [facility] 00:00:[facility] Sigmoidoscopy] [facility] Future Scheduled 1950 Screening for malignant [facility] 00:00:00 neoplasm of breast Medical C enter (procedure) [code = 261628293] Future Scheduled 1950 CT Colonography (combo) [facility] 00:00:00 [code = CT Colonography [facility] (combo)] Future Scheduled 1950 Screening for malignant [facility] 00:00:00 neoplasm of colon Medical Ce nter (procedure) [code = 051262998] Future Scheduled 1950 Screening for malignant [facility] 00:00:00 neoplasm of colon Medical Ce nter (procedure) [code = 997855754] Future Scheduled 1950 DXA SCAN [code = DXA [facility] 00:00:00 SCAN] [facility] Future Scheduled 1950 Screening for malignant [facility] 00:00:00 neoplasm of colon Medical Ce nter (procedure) [code = 092191391] Future Scheduled 1950 Screening for malignant [facility] 00:00:00 neoplasm of colon Medical Ce nter (procedure) [code = 403656510] Future Scheduled 1950 Sigmoidoscopy [code = [facility] 00:[facility]] [facility] Future Scheduled ELECTROCARDIOGRAM [facility] Test COMPLETE [code = 95022] [facility] Future Scheduled COLON CANCER SCREENING: [facility] Test COLONOSCOPY [code = COLON Me dicine CANCER SCREENING: COLONOSCOPY] Future Scheduled MAMMOGRAM ANNUAL [code = [facility] Test MAMMOGRAM ANNUAL] Medicine Future Scheduled TETANUS SHOT (ADULT) [facility] Test [code = TETANUS SHOT Medicin e (ADULT)] Future Scheduled HEPATITIS C SCREENING Ba [facility] Test [code = HEPATITIS C Medicine SCREENING] Future Scheduled FALL SCREEN [code = FALL [facility] Test SCREEN] Medicine Future Scheduled OSTEOPOROSIS SCREENING B [facility] Test [code = OSTEOPOROSIS Medicin e SCREENING] Future Scheduled PNEUMOVAX >=65 (PPSV23) [facility] Test [code = PNEUMOVAX >=65 Medic ine (PPSV23)] Future Scheduled PREVNAR >= 65 (PCV13) Ba [facility] Test [code = PREVNAR >= 65 Medici ne (PCV13)] Future Scheduled FLU VACCINE > [address] [facility] Test [code = FLU VACCINE > 6 Medi cine MONTHS] Future Scheduled ELECTROCARDIOGRAM [facility] Test COMPLETE [code = 35733] Medi cine Future Scheduled COLON CANCER SCREENING: [facility] Test COLONOSCOPY [code = COLON Me dicine CANCER SCREENING: COLONOSCOPY] Future Scheduled MAMMOGRAM ANNUAL [code = [facility] Test MAMMOGRAM ANNUAL] Medicine Future Scheduled TETANUS SHOT (ADULT) [facility] Test [code = TETANUS SHOT Medicin e (ADULT)] Future Scheduled BMI FOLLOW UP PLAN [code [facility] Test = BMI FOLLOW UP PLAN] Medici ne Future Scheduled HEPATITIS C SCREENING [facility] Test [code = HEPATITIS C Medicine SCREENING] Future Scheduled ZOSTER VACCINE (1 of 2) [facility] Test [code = ZOSTER VACCINE (1 Me dicine of 2)] Future Scheduled MEDICARE AWV (Initial) B [facility] Test [code = MEDICARE AWV Medicin e (Initial)] Future Scheduled FALL SCREEN [code = FALL [facility] Test SCREEN] Medicine Future Scheduled OSTEOPOROSIS SCREENING B [facility] Test [code = OSTEOPOROSIS Medicin e SCREENING] Future Scheduled PNEUMOVAX >=65 (PPSV23) [facility] Test [code = PNEUMOVAX >=65 Medic ine (PPSV23)] Future Scheduled FLU VACCINE > [address] [facility] Test [code = FLU VACCINE > 6 Medi cine MONTHS] Encounters Start End Encounter Admission Attending Care Care Encounter Source Date/Time Date/Time Type Type Clinicians Facility Department ID 2022-07-26 Outpatient [facility] [id number] [place] 11:33:[address] [place] [address] 2022-05-28 Outpatient [place], STLMLC STLMLC [id number] Common 15:19:01 Sisi [id number] [facility] 2022-05-16 Outpatient [facility] [id number] [place] 08:43:53 [id number] [facility] 2022-02-26 Outpatient [place], STLMLC STLMLC [id number] Common 08:41:01 Sisi [id number] [facility] 2021-11-23 Outpatient [place], STLMLC STLMLC [id number] Common 13:20:01 Sisi [facility] 2021-10-23 Outpatient [place], STLMLC STLMLC [id number] Common 09:46:02 Sisi [id number] [facility] 2021-08-16 Outpatient [place], STLMLC STLMLC [id number] Common 13:58:51 Sisi [id number] [facility] 2021-08-16 Outpatient [place], STLMLC STLMLC [id number] Common 13:45:53 Sisi [id number] [facility] 2021-08-16 Outpatient [place], STLMLC STLMLC [id number] Common 13:27:31 Sisi [id number] [facility] 2023-02-25 2023-02-25 Outpatient RAPINI, [facility] [id number] [place] 10:15:00 10:15:00 [facility] 2022-07-02 2022-07-02 [facility] 12.840.1 [id number] [facility] 12:41:31 23:59:00 Encounter Carolyn guzman 58180.1.1 186 s t 3.430.2.7 Hospit a .3.967060 l .8 2022-07-02 2022-07-[address]1 [id number] 2 [id number] [place] 00:00:00 00:00:00 Encounter CAROLYN Guzman 56734.1.1 [address] .3.761173 .8 2022-07-02 2022-07-02 Travel 1.2.840.1 1.2.847.313 [id number] Methodi 00:00:00 00:00:[address] 3.430.2.7 0.2.7.3.698 Ho spita .3.449418 084.8 l .8 2022-07-02 2022-07-02 Travel 1.2.840.1 1.2.649.242 8434 [id number] Methodi 00:00:00 00:00:[address] 3.430.2.7 0.2.7.3.698 Ho spita .3.996679 084.8 l .8 2022-06-06 2022-06-06 Outpatient [facility] [id number] [place] 10:00:00 10:00:00 [facility] 2022-05-30 2022-05-30 OFFICE [facility] [id number] Co mmon 00:00:00 00:00:00 VISIT Spirit ESTAB PT - CHI LEVEL 4 [facility] 2022-05-28 2022-05-28 [facility] 1.2.840.1 [id number] Methodi 00:00:00 00:00:00 Orders g, Carolyn 18276.1.[address] 3.430.2.7 Hospit a .3.599534 l .8 2022-05-28 2022-05-28 [facility] 1.2.840.1 [id number] Methodi 00:00:00 00:00:00 Orders g, Carolyn 37779.1.[address] 3.430.2.7 Hospit a .3.424994 l .8 2022-05-25 2022-05-25 Outpatient [facility] [id number] [place] 14:00:00 14:00:00 [facility] 2022-05-18 2022-05-18 [facility] 1.2.840.114 [id number] [place] 14:15:00 14:51:35 Visit [facility] 350.1.13.58 [facility] 9.2.7.2.686 3 [id number] 1 2022-05-17 2022-05-17 (TEL) STLMLC STLMLC [id number] Co mmon 00:00:00 00:00:00 [facility] 2022-04-25 2022-04-25 Office RENÉ Lowery [facility] 1.2.840.114 [id number] [place] 09:30:00 11:13:45 Visit [facility] 350.1.13.58 [facility] 9.2.7.2.686 3 [id number] 1 2022-02-28 2022-02-28 [facility] [id number] Co mmon 00:00:00 00:00:00 VISIT EST Spir it PT LEVEL 3 [facility] 2022-02-20 2022-02-20 [facility] 1.2.840.1 [id number] 2 [id number] Methodi 08:29:50 23:59:00 Encounter g, Carolyn 10978.1.1 168 s t 3.430.2.7 Hospit a .3.403578 l .8 2022-02-20 2022-02-20 [facility] 1.2.840.1 [id number] 2 [id number] Methodi 08:29:50 23:59:00 Encounter g, Carolyn 47373.1.1 168 s t 3.430.2.7 Hospit a .3.445931 l .8 2022-02-20 2022-02-20 Travel 1.2.840.1 1.2.442.603 4350 [id number] Methodi 00:00:00 00:00:[address] 3.430.2.7 0.2.7.3.698 Ho spita .3.601486 084.8 l .8 2022-02-20 2022-02-20 Travel 1.2.840.1 1.2.092.997 7063 [id number] Methodi 00:00:00 00:00:[address] 3.430.2.7 0.2.7.3.698 Ho spita .3.427261 084.8 l .8 2022-02-19 2022-02-19 Office Erica RENÉ [facility] 4 1.2.161.639 1707 [id number] [place] 10:45:00 11:06:55 Visit Dayami 350.1.13.58 He alth 9.2.7.2.686 [id number] 1 2022-02-12 2022-02-12 [facility] 1.2.840.1 [id number] 2 [id number] Methodi 23:59:00 23:59:00 Encounter Carolyn guzman 50474.1.1 477 s t 3.430.2.7 Hospit a .3.752817 l .8 2022-02-12 2022-02-12 Hospital [facility] 1.2.840.1 [id number] 2 [id number] Methodi 23:59:00 23:59:00 Encounter Carolyn guzman 94628.1.1 477 s t 3.430.2.7 Hospit a .3.294466 l .8 2022-02-02 2022-02-02 Travel 1.2.840.1 1.2.176.909 9126 [id number] Methodi 00:00:00 00:00:[address] 3.430.2.7 0.2.7.3.698 Ho spita .3.814749 084.8 l .8 2022-02-02 2022-02-02 Travel 1.2.840.1 1.2.097.132 1743 [id number] Methodi 00:00:00 00:00:[address] 3.430.2.7 0.2.7.3.698 Ho spita .3.797958 084.8 l .8 2022-01-29 2022-01-29 Travel 1.2.840.1 1.2.291.590 4641 [id number] Methodi 00:00:00 00:00:[address] 3.430.2.7 0.2.7.3.698 Ho spita .3.453421 084.8 l .8 2022-01-29 2022-01-29 Travel 1.2.840.1 1.2.819.005 1157 [id number] Methodi 00:00:00 00:00:[address] 3.430.2.7 0.2.7.3.698 Ho spita .3.939387 084.8 l .8 2022-01-19 2022-01-19 [facility] 1.2.840.1 [id number] Methodi 00:00:00 00:00:00 Orders [address]Dalliny 85467.1.[address] 3.430.2.7 Hospit a .3.958076 l .8 2022-01-19 2022-01-19 [facility] 1.2.840.1 [id number] Methodi 00:00:00 00:00:00 Orders Carolyn guzman 43846.1.[address] 3.430.2.7 Hospit a .3.610403 l .8 2021-11-27 2021-11-27 [facility] [id number] Co mmon 00:00:00 00:00:00 VISIT EST Spir it PT LEVEL 3 - [facility] 2021-09-15 2021-09-16 Outpatient JACIEL KEL[facility] Surgery [id number] [facility] 05:45:00 11:37:00 2021-09-15 2021-09-16 [facility] Poppy Lima [facility] [id number] [facility] 05:45:00 11:37:00 [facility] 2021-09-15 2021-09-15 Outpatient [facility] [id number] [facility] 05:45:00 23:59:00 Isabel 2021-09-15 2021-09-15 [facility] [id number] [facility] 07:50:00 12:00:00 Event Hannah Vizcaino [facility] 2021-09-15 2021-09-15 Surgery [facility] [id number] 07:30:00 11:52:00 [facility] 2021-09-14 2021-09-14 [id number] 00:00:00 00:00:00 Only [facility] 2021-09-13 2021-09-13 Outpatient [facility] [id number] [facility] 13:24:19 23:59:00 2021-09-13 2021-09-13 [facility] [id number] 13:15:00 23:59:00 Encounter [facility] 2021-09-13 2021-09-13 Travel [facility] [id number] [facility] 00:[facility] 00:00:00 [facility] 2021-09-08 2021-09-08 [facility] 1.2.840.1 [id number] Methodi 09:00:00 23:59:00 Encounter Nhi Adame 11796.1.[address] 3.430.2.7 Hospit a .3.021391 l .8 2021-09-08 2021-09-08 Travel 1.2.840.1 1.2.697.052 3934 [id number] Methodi 00:00:00 00:00:[address] 3.430.2.7 0.2.7.3.698 Ho spita .3.715687 084.8 l .8 2021-08-30 2021-08-30 Travel 1.2.840.1 1.2.136.810 1142 [id number] Methodi 00:00:00 00:00:[address] 3.430.2.7 0.2.7.3.698 Ho spita .3.123171 084.8 l .8 2021-08-30 2021-08-30 Transcrisachin Carrera, 1.2.840.1 [id number] 2 [id number] Methodi 00:00:00 00:00:00 Orders Nhi Adame 34863.1.[address] 3.430.2.7 Hospit a .3.531076 l .8 2021-08-16 2021-08-16 Outpatient [facility] [id number] [facility] 09:31:10 23:59:00 NHI 2021-08-16 2021-08-16 [facility] [id number] [facility] 09:30[facility]00 23:59:00 [facility] 2021-08-16 (TEL) STLMLC STLMLC [id number] Co mmon 00:00:00 00:00:00 [facility] 2021-08-16 2021-08-16 [facility] [id number] 00:00:00 00:00:00 Orders Nhi Adame [facility] 2021-07-26 2021-07-26 OFFICE STLMLC STLMLC [id number] Co mmon 00:00:00 00:00:00 VISIT EST Spir it PT LEVEL 3 - [facility] 2021-05-23 2021-05-23 (TEL) STLMLC STLMLC [id number] Co mmon 00:00:00 00:00:00 [facility] 2021-05-03 2021-05-03 OFFICE STLMLC STLMLC [id number] Co mmon 00:00:00 00:00:00 VISIT Spirit ESTAB PT - CHI LEVEL 4 [facility] 2021-04-13 2021-04-13 (TEL) STLMLC STLMLC [id number] Co mmon 00:00:00 00:00:00 [facility] 2021-03-02 2021-03-02 Outpatient CHARISSA JOYNER [id number] [address] [place] [address] 13:05:25 14:59:38 JANI Frey Medicin e 2021-03-02 2021-03-02 Outpatient CHARISSA JOYNER [facility] [id number] [facility] 13:06:43 14:52:43 JANI crouch of Medicin e 2020-09-14 2020-09-14 [facility] 1.2.840.114 [id number] Univers 15:10:06 23:59:00 Encounter Moy L [facility] 350.1.13.10 ity of Surgical 4.2.7.2.686 Severino as Specialti [id number] Il dical es 809 [facility] 2020-09-14 2020-09-14 [facility] [id number] Univers 16:00:00 16:00:00 [facility] 2020-09-14 2020-09-14 Office Salazar Moy [facility] 1.2.840. 114 [id number] Univers 14:54:32 15:48:10 Visit [place] [facility] 350.1.13.10 ity of Surgical 4.2.7.2.686 Severino as Specialti [id number] Il dical es 198 [facility] 2020-09-06 2020-09-06 Outpatient [facility] [id number] Univers 13:00:00 13:00:00 [facility] 2020-08-11 2020-08-11 [facility] 1.2.840.114 [id number] Univers 13:08:22 23:59:00 Encounter [facility] 350.1.13.10 ity of Surgical 4.2.7.2.686 Severino as Specialti [id number] Il dical es 809 [facility] 2020-08-11 2020-08-11 Outpatient [facility] [id number] Univers 14:00:00 14:00:00 [facility] 2020-08-11 2020-08-11 Office [facility] 1.2.840.114 [id number] Univers 13:07:34 13:22:34 Visit [facility] 350.1.13.10 it y of Surgical 4.2.7.2.686 Severino as Specialti [id number] Il dical es 198 [facility] 2020-08-04 2020-08-04 Outpatient R PARAM [facility] [id number] Univers 09:05:02 23:59:00 BIN ity of [facility] 2020-08-04 2020-08-04 Hospital [facility] 1.2.840.114 [id number] Univers 09:05:02 23:59:00 Encounter [facility] 350.1.13.10 ity of Surgical 4.2.7.2.686 Severino as Specialti [id number] Il dical es 809 [facility] 2020-08-04 2020-08-04 Office [facility] 1.2.840.114 [id number] Univers 08:36:12 08:51:12 Visit [facility] 350.1.13.10 it y of Surgical 4.2.7.2.686 Severino as Specialti [id number] Il dical es 198 [facility] 2020-08-04 2020-08-04 Orders Doctor POPPY 1.2.840.114 [id number] Univers 00:00:00 00:00:00 Only Unassigned, NONA 350.1.13.10 ity of [facility] 4.2.7.2.686 Severino as [id number] [facility] [address] 2020-03-10 2020-03-10 Office CHARISSA Joyner 1.2.840.114 [id number] [facility] 13:53:18 14:23:18 Visit Jani AMBULATOR 350.1.13.21 College Y 0.2.7.2.686 of [id number] [facility] 300 e 2019-12-21 2019-12-21 Appointmen ERICA [facility] Dermatology [id number] [place] 10:10:00 10:10:00 t; DAYAMI SINGH, [facility] edna STOCK M.D. [facility] Daphne [place] 2019-12-01 2019-12-01 Office CHARISSA Joyner 1.2.840.114 [id number] [facility] 14:10:05 14:40:05 Visit Jani AMBULATOR 350.1.13.21 College Y 0.2.7.2.686 [id number] [facility] 300 e 2018-07-28 2018-07-28 Appointmen ERICA RENÉ [facility] [id number] [place] 10:10:00 10:10:00 t; DAYAMI SINGH Phy sici RONALD, M.D. ans M.D. 2016-10-01 2016-10-01 Appointmen ERICA RENÉ [facility] [id number] [place] 10:25:00 10:25:00 t; DAYAMI SINGH Phy sici RONALD, M.D. ans M.D. Results Test Description Test Time Test Comments Results Result Comments Source Cv stress test 2022-02-21 09:17:45 Test Item Value Reference Range Interpretation Comme nts Resting HR (test code = 7553695519) Resting BP (test code = 2136824166) Peak MET Achieved (test code = 6275485170) Protocol Name (test code = 5674351070) Lexiscan Time in Exercise Phase (test code = 00:01:00 5578584056) Max Systolic BP (test code = 6067832384) Max Diastolic BP (test code = 1925384473) Max Heart Rate (test code = 1878404904) Max Predicted Heart Rate (test code = 8006666324) Target HR Formula (test code = (220 - Age)*100% 3081925855) Test Indication (test code = Syncope 4036417676) Arrhy During Ex (test code = 6674843267) ECG Interp Before EX (test code = 7980828898) ECG Interp During Ex (test code = 9861899185) Ex Summary Comment (test code = 5836652684) Overall HR Response to Exercise (test code = 5132230336) Overall BP Response To Exercise (test code = 1327141456) Reason for Termination (test code = Protocol Complete 9677659859) Stress Test Impression (test code = -Waveform interpreted in report 1964137173) associated with image study. No interpretation is provided as part of this Stress ECG report.-Electronically Signed By Williams MATA, Poppy Rivera ([id number]), book editor Nadege Negro ([id number]) on 02/21/2022 4:17:42 AM [facility] stress [id number] 09:17:45 Test Item Value Reference Range Interpretation Comments Resting HR (test code 60 = 6336822226) Resting BP (test code = 9006138250) Peak MET Achieved 1 (test code = 5243306200) Protocol Name (test Lexiscan code = 3310876804) Time in Exercise 00:01:00 Phase (test code = 1653308675) Max Systolic BP (test 177 code = 8757118186) Max Diastolic BP 84 (test code = 4940109196) Max Heart Rate (test 81 code = 0240084274) Max Predicted Heart 149 Rate (test code = 6211490383) Target HR Formula (220 - Age)*100% (test code = 2329359935) Test Indication (test Syncope code = 9158032076) Arrhy During Ex (test code = 2872380520) ECG Interp Before EX (test code = 0596805039) ECG Interp During Ex (test code = 5171436028) Ex Summary Comment (test code = 5851865147) Overall HR Response to Exercise (test code = 5329696918) Overall BP Response To Exercise (test code = 8431314591) Reason for Protocol Complete Termination (test code = 5728725127) Stress Test -Waveform interpreted in Impression (test code report associated with = 7589424163) image study. No interpretation is provided as part of this Stress ECG report.-Electronically Signed By Williams MATA, Poppy Rivera ([id number]), book editor Nadege Negro ([id number]) on 02/21/2022 4:17:42 AM [facility] Metabolic [id number] 06:43:37 Test Item Value Reference Range Interpretation Comments Sodium (test code = 138 meq/L 650-162 5984-2) Potassium (test code = 3.8 meq/L 3.5-5.1 2823-3) Chloride (test code = 108 meq/L 98-107 H 2074-0) CO2 (test code = 26 meq/L -2027-9) BUN (test code = 11 mg/dL 7-21 3094-0) Creatinine (test code 0.66 mg/dL 0.57-1.25 = 2160-0) Glucose (test code = 97 mg/dL 70-105 2345-7) Calcium (test code = 8.5 mg/dL 8.4-10.2 41870-6) EGFR (test code = 89 mL/min/1.73 [place] [address]-5) NOT ACCURATE CREATININE CLEARANCE IN PREDICTING GLOMERULAR FILTRATION RATE . ESTIMATED GFR I S NOT APPLICABLE FOR DIALYSIS PATIENTS. SILVANO (test code = SILVANO) Aerophysics Engineer ID - DEION M Lab Interpretation Abnormal (test code = 11566-7) [facility] Metabolic Mssuu9731-76-77 06:43:37 Test Item Value Reference Range Interpretation Comments Sodium (test code = 138 meq/L 829-669 9025-2) Potassium (test code = 3.8 meq/L 3.5-5.1 2823-3) Chloride (test code = 108 meq/L 98-107 H 2074-0) CO2 (test code = 26 meq/L -2028-03) BUN (test code = 11 mg/dL - 3094-0) Creatinine (test code 0.66 mg/dL 0.57-1.25 = 2160-0) Glucose (test code = 97 mg/dL 70-105 2345-7) Calcium (test code = 8.5 mg/dL 8.4-10.2 24282-4) EGFR (test code = 89 mL/min/1.[place] [address]-2) NOT ACCURATE CREATININE CLEARANCE IN PREDICTING GLOMERULAR FILTRATION RATE . ESTIMATED GFR I S NOT APPLICABLE FOR DIALYSIS PATIENTS. SILVANO (test code = SILVANO) Aerophysics Engineer ID - DEION M Lab Interpretation Abnormal (test code = 22337-4) [facility] Metabolic [id number] 06:43:37 Test Item Value Reference Range Interpretation Comments Sodium (test code = 138 meq/L 113-689 9680-2) Potassium (test code = 3.8 meq/L 3.5-5.1 2823-3) Chloride (test code = 108 meq/L 98-107 H 2074-0) CO2 (test code = 26 meq/L -9) BUN (test code = 11 mg/dL 7- 3094-0) Creatinine (test code 0.66 mg/dL 0.57-1.25 = 2160-0) Glucose (test code = 97 mg/dL 70-105 2345-7) Calcium (test code = 8.5 mg/dL 8.4-10.2 44555-0) EGFR (test code = 89 mL/min/1.73 [place] [address]-2) NOT ACCURATE CREATININE CLEARANCE IN PREDICTING GLOMERULAR FILTRATION RATE . ESTIMATED GFR I S NOT APPLICABLE FOR DIALYSIS PATIENTS. SILVANO (test code = SILVANO) Aerophysics Engineer ID - DEION M Lab Interpretation Abnormal (test code = 30907-6) [facility] Metabolic [id number] 06:43:37 Test Item Value Reference Range Interpretation Comments Sodium (test code = 138 meq/L 798-753 4845-2) Potassium (test code = 3.8 meq/L 3.5-5.1 2823-3) Chloride (test code = 108 meq/L 98-107 H 2074-0) CO2 (test code = 26 meq/L -2028-03) BUN (test code = 11 mg/dL - 3094-0) Creatinine (test code 0.66 mg/dL 0.57-1.25 = 2160-0) Glucose (test code = 97 mg/dL 70-105 2345-7) Calcium (test code = 8.5 mg/dL 8.4-10.2 04485-3) EGFR (test code = 89 mL/min/1.[place] [address]-8) NOT ACCURATE CREATININE CLEARANCE IN PREDICTING GLOMERULAR FILTRATION RATE . ESTIMATED GFR I S NOT APPLICABLE FOR DIALYSIS PATIENTS. SILVANO (test code = SILVANO) Aerophysics Engineer ID - DEION M Lab Interpretation Abnormal (test code = 67621-0) [facility] Metabolic [id number] 06:43:37 Test Item Value Reference Range Interpretation Comments Sodium (test code = 138 meq/L 186-435 7650-2) Potassium (test code = 3.8 meq/L 3.5-5.1 2823-3) Chloride (test code = 108 meq/L 98-107 H 2074-0) CO2 (test code = 26 meq/L -2027-9) BUN (test code = 11 mg/dL 7- 3094-0) Creatinine (test code 0.66 mg/dL 0.57-1.25 = 2160-0) Glucose (test code = 97 mg/dL 70-105 2345-7) Calcium (test code = 8.5 mg/dL 8.4-10.2 63380-8) EGFR (test code = 89 mL/min/1.73 [place] [address]-1) NOT ACCURATE CREATININE CLEARANCE IN PREDICTING GLOMERULAR FILTRATION RATE . ESTIMATED GFR I S NOT APPLICABLE FOR DIALYSIS PATIENTS. SILVANO (test code = SILVANO) Aerophysics Engineer ID - DEION Mendoza Lab Interpretation Abnormal (test code = 47483-3) [facility] METABOLIC [id number] 06:43:37 Test Item Value Reference Range Interpretation Comments SODIUM (BEAKER) 138 meq/L 136-145 (test code = 381) POTASSIUM (BEAKER) 3.8 meq/L 3.5-5.1 (test code = 379) CHLORIDE (BEAKER) 108 meq/L 98-107 H (test code = 382) CO2 (BEAKER) (test 26 meq/L 22-29 code = 355) BLOOD UREA NITROGEN 11 mg/dL 7-21 (BEAKER) (test code = 354) CREATININE (BEAKER) 0.66 mg/dL 0.57-1.25 (test code = 358) GLUCOSE RANDOM 97 mg/dL 70-105 (BEAKER) (test code = 652) CALCIUM (BEAKER) 8.5 mg/dL 8.4-10.2 (test code = 697) EGFR (BEAKER) (test 89 mL/min/1.73 ESTIMA BEATRIZ GFR IS code = 1092) sq m NOT ACCURATE CREATININE CLEARANCE IN PREDICTING GLOMERULAR FILTRATION RATE . ESTIMATED GFR I S NOT APPLICABLE FOR DIALYSIS PATIEN TS. Aerophysics Engineer ID - DEION [facility] (Hemogram only)2021-09-16 06:28:53 Test Item Value Reference Range Interpretation Comments WBC (test code = 6690-2) 7.8 See_Comment [A utomated message] The system [employer] generated this result transmitted ref erence range: 3.5 - 10 .5 K/L. The refe rence range was not u sed to interpret this result as normal/abnor mal. RBC (test code = 789-8) 3.65 See_Comment L [Au tomated message] The system [employer] generated this result transmitted ref erence range: 3.93 - 5 .22 M/L. The refe rence range was not u sed to interpret this result as normal/abnor mal. MCHC (test code = 786-4) 33.0 See_Comment L [A utomated message] The system [employer] generated this result transmitted ref erence range: 32.2 - 3 5.5 GM/DL. The refe rence range was not u sed to interpret this result as normal/abnor mal. Hematocrit (test code = 33.6 % 34.1-44.9 L 4544-3) MCV (test code = 787-2) 92.1 fL 79.4-94.8 MCH (test code = 785-6) 30.4 pg 25.6-32.2 RDW (test code = 788-0) 12.6 % 11.7-14.4 Platelets (test code = 138 See_Comment L [Aut omated message] 777-3) The system [employer] generated this result transmitted ref erence range: 150 - 45 0 K/CU MM. The referen ce range was not u sed to interpret this result as normal/abnor mal. MPV (test code = 10.2 fL 9.4-12.3 76232-3) nRBC (test code = 413) 0 See_Comment [Aut omated message] The system [employer] generated this result transmitted ref erence range: 0 - 0 /1 00 WBC. The refere nce range was not u sed to interpret this result as normal/abnor mal. Lab Interpretation (test Abnormal code = 25935-5) [facility] (Hemogram only)2021-09-16 06:28:53 Test Item Value Reference Range Interpretation Comments WBC (test code = 6690-2) 7.8 See_Comment [A utomated message] The system [employer] generated this result transmitted ref erence range: 3.5 - 10 .5 K/L. The refe rence range was not u sed to interpret this result as normal/abnor mal. RBC (test code = 789-8) 3.65 See_Comment L [Au tomated message] The system [employer] generated this result transmitted ref erence range: 3.93 - 5 .22 M/L. The refe rence range was not u sed to interpret this result as normal/abnor mal. MCHC (test code = 786-4) 33.0 See_Comment L [A utomated message] The system [employer] generated this result transmitted ref erence range: 32.2 - 3 5.5 GM/DL. The refe rence range was not u sed to interpret this result as normal/abnor mal. Hematocrit (test code = 33.6 % 34.1-44.9 L 4544-3) MCV (test code = 787-2) 92.1 fL 79.4-94.8 MCH (test code = 785-6) 30.4 pg 25.6-32.2 RDW (test code = 788-0) 12.6 % 11.7-14.4 Platelets (test code = 138 See_Comment L [Aut omated message] 777-3) The system [employer] generated this result transmitted ref erence range: 150 - 45 0 K/CU MM. The referen ce range was not u sed to interpret this result as normal/abnor mal. MPV (test code = 10.2 fL 9.4-12.3 00669-6) nRBC (test code = 413) 0 See_Comment [Aut omated message] The system [employer] generated this result transmitted ref erence range: 0 - 0 /1 00 WBC. The refere nce range was not u sed to interpret this result as normal/abnor mal. Lab Interpretation (test Abnormal code = 04866-8) [facility] (Hemogram only)2021-09-16 06:28:53 Test Item Value Reference Range Interpretation Comments WBC (test code = 6690-2) 7.8 See_Comment [A utomated message] The system [employer] generated this result transmitted ref erence range: 3.5 - 10 .5 K/L. The refe rence range was not u sed to interpret this result as normal/abnor mal. RBC (test code = 789-8) 3.65 See_Comment L [Au tomated message] The system [employer] generated this result transmitted ref erence range: 3.93 - 5 .22 M/L. The refe rence range was not u sed to interpret this result as normal/abnor mal. MCHC (test code = 786-4) 33.0 See_Comment L [A utomated message] The system [employer] generated this result transmitted ref erence range: 32.2 - 3 5.5 GM/DL. The refe rence range was not u sed to interpret this result as normal/abnor mal. Hematocrit (test code = 33.6 % 34.1-44.9 L 4544-3) MCV (test code = 787-2) 92.1 fL 79.4-94.8 MCH (test code = 785-6) 30.4 pg 25.6-32.2 RDW (test code = 788-0) 12.6 % 11.7-14.4 Platelets (test code = 138 See_Comment L [Aut omated message] 777-3) The system [employer] generated this result transmitted ref erence range: 150 - 45 0 K/CU MM. The referen ce range was not u sed to interpret this result as normal/abnor mal. MPV (test code = 10.2 fL 9.4-12.3 90999-8) nRBC (test code = 413) 0 See_Comment [Aut omated message] The system [employer] generated this result transmitted ref erence range: 0 - 0 /1 00 WBC. The refere nce range was not u sed to interpret this result as normal/abnor mal. Lab Interpretation (test Abnormal code = 85005-4) [facility] (Hemogram only)2021-09-16 06:28:53 Test Item Value Reference Range Interpretation Comments WBC (test code = 6690-2) 7.8 See_Comment [A utomated message] The system [employer] generated this result transmitted ref erence range: 3.5 - 10 .5 K/L. The refe rence range was not u sed to interpret this result as normal/abnor mal. RBC (test code = 789-8) 3.65 See_Comment L [Au tomated message] The system [employer] generated this result transmitted ref erence range: 3.93 - 5 .22 M/L. The refe rence range was not u sed to interpret this result as normal/abnor mal. MCHC (test code = 786-4) 33.0 See_Comment L [A utomated message] The system [employer] generated this result transmitted ref erence range: 32.2 - 3 5.5 GM/DL. The refe rence range was not u sed to interpret this result as normal/abnor mal. Hematocrit (test code = 33.6 % 34.1-44.9 L 4544-3) MCV (test code = 787-2) 92.1 fL 79.4-94.8 MCH (test code = 785-6) 30.4 pg 25.6-32.2 RDW (test code = 788-0) 12.6 % 11.7-14.4 Platelets (test code = 138 See_Comment L [Aut omated message] 777-3) The system [employer] generated this result transmitted ref erence range: 150 - 45 0 K/CU MM. The referen ce range was not u sed to interpret this result as normal/abnor mal. MPV (test code = 10.2 fL 9.4-12.3 46831-1) nRBC (test code = 413) 0 See_Comment [Aut omated message] The system [employer] generated this result transmitted ref erence range: 0 - 0 /1 00 WBC. The refere nce range was not u sed to interpret this result as normal/abnor mal. Lab Interpretation (test Abnormal code = 24829-1) [facility] (Hemogram only)2021-09-16 06:28:53 Test Item Value Reference Range Interpretation Comments WBC (test code = 6690-2) 7.8 See_Comment [A utomated message] The system [employer] generated this result transmitted ref erence range: 3.5 - 10 .5 K/L. The refe rence range was not u sed to interpret this result as normal/abnor mal. RBC (test code = 789-8) 3.65 See_Comment L [Au tomated message] The system [employer] generated this result transmitted ref erence range: 3.93 - 5 .22 M/L. The refe rence range was not u sed to interpret this result as normal/abnor mal. MCHC (test code = 786-4) 33.0 See_Comment L [A utomated message] The system [employer] generated this result transmitted ref erence range: 32.2 - 3 5.5 GM/DL. The refe rence range was not u sed to interpret this result as normal/abnor mal. Hematocrit (test code = 33.6 % 34.1-44.9 L 4544-3) MCV (test code = 787-2) 92.1 fL 79.4-94.8 MCH (test code = 785-6) 30.4 pg 25.6-32.2 RDW (test code = 788-0) 12.6 % 11.7-14.4 Platelets (test code = 138 See_Comment L [Aut omated message] 777-3) The system [employer] generated this result transmitted ref erence range: 150 - 45 0 K/CU MM. The referen ce range was not u sed to interpret this result as normal/abnor mal. MPV (test code = 10.2 fL 9.4-12.3 42023-4) nRBC (test code = 413) 0 See_Comment [Aut omated message] The system [employer] generated this result transmitted ref erence range: 0 - 0 /1 00 WBC. The refere nce range was not u sed to interpret this result as normal/abnor mal. Lab Interpretation (test Abnormal code = 65135-1) [facility] (HEMOGRAM ONLY)2021-09-16 06:28:53 Test Item Value Reference Range Interpretation Comments WHITE BLOOD CELL COUNT (BEAKER) 7.8 K/ L 3.5-10.5 (test code = 775) RED BLOOD CELL COUNT (BEAKER) 3.65 M/ L 3.93-5.22 L (test code = 761) HEMOGLOBIN (BEAKER) (test code = 11.1 GM/DL 11.2-15.7 L 410) HEMATOCRIT (BEAKER) (test code = 33.6 % 34.1-44.9 L 411) MEAN CORPUSCULAR VOLUME (BEAKER) 92.1 fL 79.4-94.8 (test code = 753) MEAN CORPUSCULAR HEMOGLOBIN 30.4 pg 25.6-32.2 (BEAKER) (test code = 751) MEAN CORPUSCULAR HEMOGLOBIN CONC 33.0 GM/DL 32.2-35.5 (BEAKER) (test code = 752) RED CELL DISTRIBUTION WIDTH 12.6 % 11.7-14.4 (BEAKER) (test code = 412) PLATELET COUNT (BEAKER) (test 138 K/CU MM 150-450 L code = 756) MEAN PLATELET VOLUME (BEAKER) 10.2 fL 9.4-12.3 (test code = 754) NUCLEATED RED BLOOD CELLS 0 /100 WBC 0-0 (BEAKER) (test code = 413) Limited 2D [id number] 17:38:56Ejection FractionSLE [facility] Kwcodcpkhgsmel0738-56-73 17:38:56Ejection FractionSLE ECHO [facility] Jnglodnqiaixzr7488-14-79 17:38:56[facility] Ech[facility] 2021-09-15 17:38:56Ejection FractionSLE ECHO HE[facility] Ucojiztlsekhgr8346-68-87 17:38:56Ejection [facility]SMission [facility] CenterRAD, CHEST, 1 VIEW, NON ATEM0720-22-94 13:38:00Reason for exam:->s/p BiV ICD upgradeShould this be performed at the bedside?->Yes [facility]TIFRANKI JAIN : 1950 Sex: FFINALREPORT Exam: RAD, CHEST, 1 VIEW, NON DEPTDate: 09/15/2021 1:37 PM Indication:s/pBiV ICD upgradeComparison: 08/16/2021 FINDINGS: Lines/Tubes/Devices: Interval operative left pacer device to multilead AICD. Lungs/pleura:Lungs are well inflated. No focal consolidation or pulmonary edema. No pleural effusion. No pneumothorax. Heart/Mediastinum:Unchanged Bones/Soft Tissues: No acute osseous abnormality. Upper abdomen: Unremarkable. IMPRESSION:No focal consolidation, effusion or pneumothorax. New left multilead AICD in place. Signed: Bebeto Schwab MDRepmiguel Verified Date/Time: 09/15/2021 13:38:45 Reading Location: [facility] Radiology Reading Room Prepare [id number] 11:50:00 Test Item Value Reference Range Interpretation Comments CROSSMATCH (test code = COMPATIBLE 4) Unit ABO (test code = A Neg 1002294) UNIT NUMBER (test code = [id number] 934-0) Status (test code = RETURNED FROM ISSUE 15100930) Blood Bank Product (test RED BLOOD CELLS code = 2263) PRODUCT CODE (test code = B1197L84 933-2) [facility]2022-02-25 11:50:00 Test Item Value Reference Range Interpretation Comments CROSSMATCH (test code = COMPATIBLE 2264) Unit ABO (test code = A Neg 1900204) UNIT NUMBER (test code = [id number] 934-0) Status (test code = RETURNED FROM ISSUE 7097888) Blood Bank Product (test RED BLOOD CELLS code = 2263) PRODUCT CODE (test code = T0140T15 933-2) [facility]2022-02-25 11:50:00 Test Item Value Reference Range Interpretation Comments CROSSMATCH (test code = COMPATIBLE 2264) Unit ABO (test code = A Neg 9931582) UNIT NUMBER (test code = [id number] 934-0) Status (test code = RETURNED FROM ISSUE 0275216) Blood Bank Product (test RED BLOOD CELLS code = 2263) PRODUCT CODE (test code = U6235B57 933-2) [facility] [id number] 11:50:00 Test Item Value Reference Range Interpretation Comments CROSSMATCH (test code = COMPATIBLE 2264) Unit ABO (test code = A Neg 6130995) UNIT NUMBER (test code = [id number] 934-0) Status (test code = RETURNED FROM ISSUE 15100930) Blood Bank Product (test RED BLOOD CELLS code = 2263) PRODUCT CODE (test code = T9511V47 933-2) [facility] [id number] 11:50:00 Test Item Value Reference Range Interpretation Comments CROSSMATCH (test code = COMPATIBLE 2264) Unit ABO (test code = A Neg 8978538) UNIT NUMBER (test code = [id number] 934-0) Status (test code = RETURNED FROM ISSUE 15100930) Blood Bank Product (test RED BLOOD CELLS code = 2263) PRODUCT CODE (test code = X6300L31 933-2) [facility] [id number] 11:06:22 Test Item Value Reference Range Interpretation Comments Potassium (test code = 2823-3) 3.3 meq/L 3.6-5.5 L Lab Interpretation (test code = Abnormal 85006-0) [facility] [id number] 11:06:22 Test Item Value Reference Range Interpretation Comments Potassium (test code = 2823-3) 3.3 meq/L 3.6-5.5 L Lab Interpretation (test code = Abnormal 89153-4) [facility] [id number] 11:06:22 Test Item Value Reference Range Interpretation Comments Potassium (test code = 2823-3) 3.3 meq/L 3.6-5.5 L Lab Interpretation (test code = Abnormal 85247-5) [facility] [id number] 11:06:22 Test Item Value Reference Range Interpretation Comments Potassium (test code = 2823-3) 3.3 meq/L 3.6-5.5 L Lab Interpretation (test code = Abnormal 03067-2) [facility] [id number] 11:06:22 Test Item Value Reference Range Interpretation Comments Potassium (test code = 2823-3) 3.3 meq/L 3.6-5.5 L Lab Interpretation (test code = Abnormal 53489-1) [facility]OT[facility]UM[facility] [id number] 11:06:22 Test Item Value Reference Range Interpretation Comments POTASSIUM (BEAKER) (test code = 3.3 meq/L 3.6-5.5 L 379) HGB/HCT (H&H)-Stat [id number] 09:46:33 Test Item Value Reference Range Interpretation Comments Hemoglobin (test code = 11.8 See_Comment L [Au tomated message] 786-4) The system [employer] generated this result transmitted ref erence range: 12.0 - 1 5.0 GM/DL. The refe rence range was not u sed to interpret this result as normal/abnor mal. Hematocrit (test code = 35.0 % 36.0-45.0 L 4544-3) Lab Interpretation (test Abnormal code = 98176-3) [facility] ([facility]Stat [id number] 09:46:33 Test Item Value Reference Range Interpretation Comments Hemoglobin (test code = 11.8 See_Comment L [Au tomated message] 786-4) The system [employer] generated this result transmitted ref erence range: 12.0 - 1 5.0 GM/DL. The refe rence range was not u sed to interpret this result as normal/abnor mal. Hematocrit (test code = 35.0 % 36.0-45.0 L 4544-3) Lab Interpretation (test Abnormal code = 74426-6) [facility] ([facility]Stat [id number] 09:46:33 Test Item Value Reference Range Interpretation Comments Hemoglobin (test code = 11.8 See_Comment L [Au tomated message] 786-4) The system [employer] generated this result transmitted ref erence range: 12.0 - 1 5.0 GM/DL. The refe rence range was not u sed to interpret this result as normal/abnor mal. Hematocrit (test code = 35.0 % 36.0-45.0 L 4544-3) Lab Interpretation (test Abnormal code = 98652-3) [facility] ([facility]Stat [id number] 09:46:33 Test Item Value Reference Range Interpretation Comments Hemoglobin (test code = 11.8 See_Comment L [Au tomated message] 786-4) The system [employer] generated this result transmitted ref erence range: 12.0 - 1 5.0 GM/DL. The refe rence range was not u sed to interpret this result as normal/abnor mal. Hematocrit (test code = 35.0 % 36.0-45.0 L 4544-3) Lab Interpretation (test Abnormal code = 38285-6) [facility]Stat [id number] 09:46:33 Test Item Value Reference Range Interpretation Comments Hemoglobin (test code = 11.8 See_Comment L [Au tomated message] 786-4) The system [employer] generated this result transmitted ref erence range: 12.0 - 1 5.0 GM/DL. The refe rence range was not u sed to interpret this result as normal/abnor mal. Hematocrit (test code = 35.0 % 36.0-45.0 L 4544-3) Lab Interpretation (test Abnormal code = 29711-4) [facility] - STAT [id number] 09:46:33 Test Item Value Reference Range Interpretation Comments HEMOGLOBIN (BEAKER) (test code = 11.8 GM/DL 12.0-15.0 L 410) HEMATOCRIT (BEAKER) (test code = 35.0 % 36.0-45.0 L 411) POTASSIUM-STAT [id number] 09:46:32 Test Item Value Reference Range Interpretation Comments POTASSIUM (BEAKER) (test code = 2.9 meq/L 3.6-5.5 L 379) Calcium, [id number] 09:46:26 Test Item Value Reference Range Interpretation Comments Calcium, Ion (test code = 1993-09) 1.05 mmol/L 1.12-1.27 L pH, Blood (test code = 40212-1) 7.34 Lab Interpretation (test code = Abnormal 03951-8) [facility] Center[facility], [id number] 09:46:26 Test Item Value Reference Range Interpretation Comments Calcium, Ion (test code = 1993-3) 1.05 mmol/L 1.12-1.27 L pH, Blood (test code = 86486-1) 7.34 Lab Interpretation (test code = Abnormal 53883-7) [facility] CenterCal[facility], [id number] 09:46:26 Test Item Value Reference Range Interpretation Comments Calcium, Ion (test code = 1993-3) 1.05 mmol/L 1.12-1.27 L pH, Blood (test code = 59167-1) 7.34 Lab Interpretation (test code = Abnormal 03567-4) [facility] Center[facility], [id number] 09:46:26 Test Item Value Reference Range Interpretation Comments Calcium, Ion (test code = 1993-) 1.05 mmol/L 1.12-1.27 L pH, Blood (test code = 60302-0) 7.34 Lab Interpretation (test code = Abnormal 47186-1) [facility], [id number] 09:46:26 Test Item Value Reference Range Interpretation Comments Calcium, Ion (test code = 1993-3) 1.05 mmol/L 1.12-1.27 L pH, Blood (test code = 94530-5) 7.34 Lab Interpretation (test code = Abnormal 00058-4) [facility] CenterCALCIUM, [id number] 09:46:26 Test Item Value Reference Range Interpretation Comments CALCIUM IONIZED (BEAKER) (test 1.05 mmol/L 1.12-1.27 L code = 698) PH, BLOOD (BEAKER) (test code = 7.34 1810) Blood gas, [id number] 09:46:20 Test Item Value Reference Range Interpretation Comments pH, Arterial (test code 7.37 7.35-7.45 = 2744-1) pCO2, Arterial (test 41 See_Comment [Autom ated code = 2018-) message] The system which generated this result transmitted reference range : 35 - 45 mm Hg. The reference range was not used to interpret this result as normal/abnormal . pO2, Arterial (test 140 See_Comment H [Automa beatriz code = 2703-7) message] The system which generated this result transmitted reference range : 80 - 90 mm Hg. The reference range was not used to interpret this result as normal/abnormal . O2 Sat, Arterial (test 98.8 % 96.0-97.0 H code = 2708-6) HCO3, Arterial (test 24 mmol/L 21-29 code = 1960-4) Base Excess, Arterial -2.3 mmol/L -2.0-3.0 L (test code = 1925-7) Patient Temperature 34.8 (test code = 8310-5) FIO2 (test code = 1819) 50 Lab Interpretation Abnormal (test code = 36419-1) [facility] CenterBlood [facility], [id number] 09:46:20 Test Item Value Reference Range Interpretation Comments pH, Arterial (test code 7.37 7.35-7.45 = 2744-1) pCO2, Arterial (test 41 See_Comment [Autom ated code = 2019-02) message] The system which generated this result transmitted reference range : 35 - 45 mm Hg. The reference range was not used to interpret this result as normal/abnormal . pO2, Arterial (test 140 See_Comment H [Automa beatriz code = 2703-7) message] The system which generated this result transmitted reference range : 80 - 90 mm Hg. The reference range was not used to interpret this result as normal/abnormal . O2 Sat, Arterial (test 98.8 % 96.0-97.0 H code = 2708-6) HCO3, Arterial (test 24 mmol/L 21-29 code = 1960-4) Base Excess, Arterial -2.3 mmol/L -2.0-3.0 L (test code = 1925-7) Patient Temperature 34.8 (test code = 8310-5) FIO2 (test code = 1819) 50 Lab Interpretation Abnormal (test code = 27973-4) [facility] CenterBlood [facility], [id number] 09:46:20 Test Item Value Reference Range Interpretation Comments pH, Arterial (test code 7.37 7.35-7.45 = 2744-1) pCO2, Arterial (test 41 See_Comment [Autom ated code = ) message] The system which generated this result transmitted reference range : 35 - 45 mm Hg. The reference range was not used to interpret this result as normal/abnormal . pO2, Arterial (test 140 See_Comment H [Automa beatriz code = 2703-7) message] The system which generated this result transmitted reference range : 80 - 90 mm Hg. The reference range was not used to interpret this result as normal/abnormal . O2 Sat, Arterial (test 98.8 % 96.0-97.0 H code = 2708-6) HCO3, Arterial (test 24 mmol/L 21-29 code = 1960-4) Base Excess, Arterial -2.3 mmol/L -2.0-3.0 L (test code = 1925-7) Patient Temperature 34.8 (test code = 8310-5) FIO2 (test code = 1819) 50 Lab Interpretation Abnormal (test code = 84380-4) [facility] Center[facility], [id number] 09:46:20 Test Item Value Reference Range Interpretation Comments pH, Arterial (test code 7.37 7.35-7.45 = 2744-1) pCO2, Arterial (test 41 See_Comment [Autom ated code = 2018-) message] The system which generated this result transmitted reference range : 35 - 45 mm Hg. The reference range was not used to interpret this result as normal/abnormal . pO2, Arterial (test 140 See_Comment H [Automa beatriz code = 2703-7) message] The system which generated this result transmitted reference range : 80 - 90 mm Hg. The reference range was not used to interpret this result as normal/abnormal . O2 Sat, Arterial (test 98.8 % 96.0-97.0 H code = 2708-6) HCO3, Arterial (test 24 mmol/L 21-29 code = 1960-4) Base Excess, Arterial -2.3 mmol/L -2.0-3.0 L (test code = 1925-7) Patient Temperature 34.8 (test code = 8310-5) FIO2 (test code = 1819) 50 Lab Interpretation Abnormal (test code = 54826-7) [facility] CenterBlood [facility], [id number] 09:46:20 Test Item Value Reference Range Interpretation Comments pH, Arterial (test code 7.37 7.35-7.45 = 2744-1) pCO2, Arterial (test 41 See_Comment [Autom ated code = 2019-8) message] The system which generated this result transmitted reference range : 35 - 45 mm Hg. The reference range was not used to interpret this result as normal/abnormal . pO2, Arterial (test 140 See_Comment H [Automa beatriz code = 2703-7) message] The system which generated this result transmitted reference range : 80 - 90 mm Hg. The reference range was not used to interpret this result as normal/abnormal . O2 Sat, Arterial (test 98.8 % 96.0-97.0 H code = 2708-6) HCO3, Arterial (test 24 mmol/L 21-29 code = 1960-4) Base Excess, Arterial -2.3 mmol/L -2.0-3.0 L (test code = 1925-7) Patient Temperature 34.8 (test code = 8310-5) FIO2 (test code = 1819) 50 Lab Interpretation Abnormal (test code = 27541-3) [facility] CenterBL[facility]OD GAS, [id number] 09:46:20 Test Item Value Reference Range Interpretation Comments PH ARTERIAL (BEAKER) (test code = 7.37 7.35-7.45 383) PCO2 ARTERIAL (BEAKER) (test code 41 mm Hg 35-45 = 384) PO2 ARTERIAL (BEAKER) (test code 140 mm Hg 80-90 H = 385) O2 SATURATION ARTERIAL (BEAKER) 98.8 % 96.0-97.0 H (test code = 386) HCO3 ARTERIAL (BEAKER) (test code 24 mmol/L 21-29 = 388) BASE EXCESS ARTERIAL (BEAKER) -2.3 mmol/L -2.0-3.0 L (test code = 387) PATIENT TEMPERATURE (BEAKER) 34.8 (test code = 1818) FIO2 (BEAKER) (test code = 1819) 50.0 Glucose-Stat [id number] 09:45:26 Test Item Value Reference Range Interpretation Comments Glucose (test code = 2345-7) 105 mg/dL 70-110 Lab Interpretation (test code = Normal 87462-6) [facility] [id number] 09:45:26 Test Item Value Reference Range Interpretation Comments Sodium (test code = 2951-2) 138 meq/L 136-145 Lab Interpretation (test code = Normal 10835-2) [facility] CenterGlucose[facility]Stat [id number] 09:45:26 Test Item Value Reference Range Interpretation Comments Glucose (test code = 2345-7) 105 mg/dL 70-110 Lab Interpretation (test code = Normal 84491-6) [facility] [id number] 09:45:26 Test Item Value Reference Range Interpretation Comments Sodium (test code = 2951-2) 138 meq/L 136-145 Lab Interpretation (test code = Normal 59713-1) [facility] CenterGlucose[facility]Stat [id number] 09:45:26 Test Item Value Reference Range Interpretation Comments Glucose (test code = 2345-7) 105 mg/dL 70-110 Lab Interpretation (test code = Normal 88088-7) [facility] [id number] 09:45:26 Test Item Value Reference Range Interpretation Comments Sodium (test code = 2951-2) 138 meq/L 136-145 Lab Interpretation (test code = Normal 16496-7) [facility] CenterGlucose[facility]Stat [id number] 09:45:26 Test Item Value Reference Range Interpretation Comments Glucose (test code = 2345-7) 105 mg/dL 70-110 Lab Interpretation (test code = Normal 76886-7) [facility]Stat [id number] 09:45:26 Test Item Value Reference Range Interpretation Comments Sodium (test code = 2951-2) 138 meq/L 136-145 Lab Interpretation (test code = Normal 30939-7) [facility] CenterGlucose[facility]Stat [id number] 09:45:26 Test Item Value Reference Range Interpretation Comments Glucose (test code = 2345-7) 105 mg/dL 70-110 Lab Interpretation (test code = Normal 69457-2) [facility] [id number] 09:45:26 Test Item Value Reference Range Interpretation Comments Sodium (test code = 2951-2) 138 meq/L 136-145 Lab Interpretation (test code = Normal 19455-6) [facility] CenterGLUCOSE-STAT [id number] 09:45:26 Test Item Value Reference Range Interpretation Comments GLUCOSE RANDOM (BEAKER) (test code 105 mg/dL 70-110 = 652) SODIUM NA-STAT [id number] 09:45:26 Test Item Value Reference Range Interpretation Comments SODIUM (BEAKER) (test code = 381) 138 meq/L 136-145 Hemoglobin [id number] 09:29:07 Test Item Value Reference Range Interpretation Comments Hemoglobin A1C (test 5.9 % See_Comment H [Autom ated code = 4549-2) message] The system which generated this result transmitted reference range : <=5.6%. The reference range was not used to interpret this result as normal/abnormal . SILVANO (test code = SILVANO) "The A1c is measured using a NGSP-certified method. HbA1c value equal to or greater than 6.5% as the diagnosis cutoff for diabetes. An HbA1c value of 5.7-6.4% indicates increased risk for diabetes (prediabetes)."O perator ID - ADM Lab Interpretation Abnormal (test code = 13783-7) [facility] CenterHemoglobin [id number] 09:29:07 Test Item Value Reference Range Interpretation Comments Hemoglobin A1C (test 5.9 % See_Comment H [Autom ated code = 4549-2) message] The system which generated this result transmitted reference range : <=5.6%. The reference range was not used to interpret this result as normal/abnormal . SILVANO (test code = SILVANO) "The A1c is measured using a NGSP-certified method. HbA1c value equal to or greater than 6.5% as the diagnosis cutoff for diabetes. An HbA1c value of 5.7-6.4% indicates increased risk for diabetes (prediabetes)."O perator ID - ADM Lab Interpretation Abnormal (test code = 63146-1) [facility] CenterHemoglobin [id number] 09:29:07 Test Item Value Reference Range Interpretation Comments Hemoglobin A1C (test 5.9 % See_Comment H [Autom ated code = 4549-2) message] The system which generated this result transmitted reference range : <=5.6%. The reference range was not used to interpret this result as normal/abnormal . SILVANO (test code = SILVANO) "The A1c is measured using a NGSP-certified method. HbA1c value equal to or greater than 6.5% as the diagnosis cutoff for diabetes. An HbA1c value of 5.7-6.4% indicates increased risk for diabetes (prediabetes)."O perator ID - ADM Lab Interpretation Abnormal (test code = 93842-0) [facility] Center[facility]emoglobin [id number] 09:29:07 Test Item Value Reference Range Interpretation Comments Hemoglobin A1C (test 5.9 % See_Comment H [Autom ated code = 4549-2) message] The system which generated this result transmitted reference range : <=5.6%. The reference range was not used to interpret this result as normal/abnormal . SILVANO (test code = SILVANO) "The A1c is measured using a NGSP-certified method. HbA1c value equal to or greater than 6.5% as the diagnosis cutoff for diabetes. An HbA1c value of 5.7-6.4% indicates increased risk for diabetes (prediabetes)."O perator ID - ADM Lab Interpretation Abnormal (test code = 04621-3) [facility] CenterHemoglobin [id number] 09:29:07 Test Item Value Reference Range Interpretation Comments Hemoglobin A1C (test 5.9 % See_Comment H [Autom ated code = 4549-2) message] The system which generated this result transmitted reference range : <=5.6%. The reference range was not used to interpret this result as normal/abnormal . SILVANO (test code = SILVANO) "The A1c is measured using a NGSP-certified method. HbA1c value equal to or greater than 6.5% as the diagnosis cutoff for diabetes. An HbA1c value of 5.7-6.4% indicates increased risk for diabetes (prediabetes)."O perator ID - ADM Lab Interpretation Abnormal (test code = 12668-8) [facility] CenterHEMOGLOBIN [id number] 09:29:07 Test Item Value Reference Range Interpretation Comments HEMOGLOBIN A1C 5.9 % See_Comment H [Automated m essage] ELECTROPHORESIS (BEAKER) The system which (test code = 3811) generated this result transmitted ref erence range: <=5.6%. The reference range was not used to int erpret this result as normal/abnormal . "The A1c is measured using a NGSP-certified method. HbA1c value equal to or greater than 6.5% as thediagnosis cutoff for diabetes. An HbA1c value of 5.7- 6.4% indicates increased risk for diabetes (prediabetes)."Aerophysics Engineer ID - ADM PIA, [id number] 07:33:00 Test Item Value Reference Range Interpretation Comments ABO Grouping (test code = 2588) A Rh Factor (test code = 2589) NEG [facility], [id number] 07:33:00 Test Item Value Reference Range Interpretation Comments ABO Grouping (test code = 2588) A Rh Factor (test code = 2589) NEG [facility], [id number] 07:33:00 Test Item Value Reference Range Interpretation Comments ABO Grouping (test code = 2588) A Rh Factor (test code = 2589) NEG [facility], [id number] 07:33:00 Test Item Value Reference Range Interpretation Comments ABO Grouping (test code = 2588) A Rh Factor (test code = 2589) NEG [facility], [id number] 07:33:00 Test Item Value Reference Range Interpretation Comments ABO Grouping (test code = 2588) A Rh Factor (test code = 2589) [facility]G [facility] CenterType [facility] screen, [id number] 07:15:00 Test Item Value Reference Range Interpretation Comments ABO/RH AUTOMATED (BEAKER) (test A NEGATIVE code = 2260) Ab Scrn (test code = 890-4) NEGATIVE [facility] CenterType [facility] screen, [id number] 07:15:00 Test Item Value Reference Range Interpretation Comments ABO/RH AUTOMATED (BEAKER) (test A NEGATIVE code = 2260) Ab Scrn (test code = 890-4) NEGATIVE [facility] CenterType [facility] screen, [id number] 07:15:00 Test Item Value Reference Range Interpretation Comments ABO/RH AUTOMATED (BEAKER) (test A NEGATIVE code = 2260) Ab Scrn (test code = 890-4) NEGATIVE [facility]Type [facility] screen, [id number] 07:15:00 Test Item Value Reference Range Interpretation Comments ABO/RH AUTOMATED (BEAKER) (test A NEGATIVE code = 2260) Ab Scrn (test code = 890-4) NEGATIVE [facility]Type [facility], [id number] 07:15:00 Test Item Value Reference Range Interpretation Comments ABO/RH AUTOMATED (BEAKER) (test A NEGATIVE code = 2260) Ab Scrn (test code = 890-4) NEGATIVE [facility] CenterBASIC METABOLIC [id number] 07:10:09 Test Item Value Reference Range Interpretation Comments SODIUM (BEAKER) 140 meq/L 136-145 (test code = 381) POTASSIUM (BEAKER) 3.2 meq/L 3.5-5.1 L (test code = 379) CHLORIDE (BEAKER) 105 meq/L 98-107 (test code = 382) CO2 (BEAKER) (test 28 meq/L 22-29 code = 355) BLOOD UREA NITROGEN 19 mg/dL 7-21 (BEAKER) (test code = 354) CREATININE (BEAKER) 0.83 mg/dL 0.57-1.25 (test code = 358) GLUCOSE RANDOM 97 mg/dL 70-105 (BEAKER) (test code = 652) CALCIUM (BEAKER) 9.0 mg/dL 8.4-10.2 (test code = 697) EGFR (BEAKER) (test 68 mL/min/1.73 ESTIMA BEATRIZ GFR IS code = 1092) sq m NOT ACCURATE CREATININE CLEARANCE IN PREDICTING GLOMERULAR FILTRATION RATE . ESTIMATED GFR I S NOT APPLICABLE FOR DIALYSIS PATIEN TS. Aerophysics Engineer ID - OBDULIA WProthrombin time/[id number] 06:59:28 Test Item Value Reference Interpretation Comments Range Protime (test code = 13.1 See_Comment [Autom ated 7562-2) message] The system which generated this result transmitted reference range : 11.9 - 14.2 seconds. The reference range was not used to interpret this result as normal/abnormal . INR (test code = 1.01 See_Comment [Automated 7861-6) message] The system which generated this result transmitted reference range : <=5.90. The reference range was not used to interpret this result as normal/abnormal . SILVANO (test code = RECOMMENDED SILVANO) COUMADIN/WARFARIN INR THERAPY RANGESSTANDARD DOSE: 2.0 - 3.0 Includes: PROPHYLAXIS for venous thrombosis, systemic embolization; TREATMENT for venous thrombosis and/or pulmonary embolus.HIGH RISK: Target INR is 2.5-3.5 for patients with mechanical heart valves. Lab Interpretation Normal (test code = 00197-4) [facility] CenterProthrombin time/[id number] 06:59:28 Test Item Value Reference Interpretation Comments Range Protime (test code = 13.1 See_Comment [Autom ated 5902-2) message] The system which generated this result transmitted reference range : 11.9 - 14.2 seconds. The reference range was not used to interpret this result as normal/abnormal . INR (test code = 1.01 See_Comment [Automated 6301-6) message] The system which generated this result transmitted reference range : <=5.90. The reference range was not used to interpret this result as normal/abnormal . SILVANO (test code = RECOMMENDED SILVANO) COUMADIN/WARFARIN INR THERAPY RANGESSTANDARD DOSE: 2.0 - 3.0 Includes: PROPHYLAXIS for venous thrombosis, systemic embolization; TREATMENT for venous thrombosis and/or pulmonary embolus.HIGH RISK: Target INR is 2.5-3.5 for patients with mechanical heart valves. Lab Interpretation Normal (test code = 12332-5) [facility] CenterProthrombin time/[id number] 06:59:28 Test Item Value Reference Interpretation Comments Range Protime (test code = 13.1 See_Comment [Autom ated 5902-2) message] The system which generated this result transmitted reference range : 11.9 - 14.2 seconds. The reference range was not used to interpret this result as normal/abnormal . INR (test code = 1.01 See_Comment [Automated 6301-6) message] The system which generated this result transmitted reference range : <=5.90. The reference range was not used to interpret this result as normal/abnormal . SILVANO (test code = RECOMMENDED SILVANO) COUMADIN/WARFARIN INR THERAPY RANGESSTANDARD DOSE: 2.0 - 3.0 Includes: PROPHYLAXIS for venous thrombosis, systemic embolization; TREATMENT for venous thrombosis and/or pulmonary embolus.HIGH RISK: Target INR is 2.5-3.5 for patients with mechanical heart valves. Lab Interpretation Normal (test code = 83464-9) [facility] CenterProthrombin time/[id number] 06:59:28 Test Item Value Reference Interpretation Comments Range Protime (test code = 13.1 See_Comment [Autom ated 5902-2) message] The system which generated this result transmitted reference range : 11.9 - 14.2 seconds. The reference range was not used to interpret this result as normal/abnormal . INR (test code = 1.01 See_Comment [Automated 6301-6) message] The system which generated this result transmitted reference range : <=5.90. The reference range was not used to interpret this result as normal/abnormal . SILVANO (test code = RECOMMENDED SILVANO) COUMADIN/WARFARIN INR THERAPY RANGESSTANDARD DOSE: 2.0 - 3.0 Includes: PROPHYLAXIS for venous thrombosis, systemic embolization; TREATMENT for venous thrombosis and/or pulmonary embolus.HIGH RISK: Target INR is 2.5-3.5 for patients with mechanical heart valves. Lab Interpretation Normal (test code = 35327-1) [facility] CenterProthrombin time/[id number] 06:59:28 Test Item Value Reference Interpretation Comments Range Protime (test code = 13.1 See_Comment [Autom ated 5902-2) message] The system which generated this result transmitted reference range : 11.9 - 14.2 seconds. The reference range was not used to interpret this result as normal/abnormal . INR (test code = 1.01 See_Comment [Automated 6301-6) message] The system which generated this result transmitted reference range : <=5.90. The reference range was not used to interpret this result as normal/abnormal . SILVANO (test code = RECOMMENDED SILVANO) COUMADIN/WARFARIN INR THERAPY RANGESSTANDARD DOSE: 2.0 - 3.0 Includes: PROPHYLAXIS for venous thrombosis, systemic embolization; TREATMENT for venous thrombosis and/or pulmonary embolus.HIGH RISK: Target INR is 2.5-3.5 for patients with mechanical heart valves. Lab Interpretation Normal (test code = 25891-9) [id number] 06:59:28 Test Item Value Reference Range Interpretation Comments PROTIME (BEAKER) 13.1 seconds 11.9-14.2 (test code = 759) INR (BEAKER) (test 1.01 See_Comment [Automat ed message] code = 370) The system [employer] generated this result transmitted ref erence range: <=5.90. The reference range was not used to int erpret this result as normal/abnormal . RECOMMENDED COUMADIN/WARFARIN INR THERAPY RANGESSTANDARD DOSE: 2.0 - 3.0 Includes: PROPHYLAXIS for venous thrombosis, systemic embolization; TREATMENT for venous thrombosis and/or pulmonary embolus.HIGH RISK: Target INR is 2.5-3.5 for patients with mechanical heart valves.CBC with platelet count + automated [id number] 06:44:41 Test Item Value Reference Range Interpretation Comments WBC (test code = 4.6 See_Comment [Automated message] 7990-2) The system [employer] generated this result transmitted ref erence range: 3.5 - 10 .5 K/L. The refe rence range was not u sed to interpret this result as normal/abnor mal. RBC (test code = 789-8) 4.36 See_Comment [Au tomated message] The system [employer] generated this result transmitted ref erence range: 3.93 - 5 .22 M/L. The refe rence range was not u sed to interpret this result as normal/abnor mal. MCHC (test code = 32.6 See_Comment [Automate d message] 786-4) The system [employer] generated this result transmitted ref erence range: 32.2 - 3 5.5 GM/DL. The refe rence range was not u sed to interpret this result as normal/abnor mal. Hematocrit (test code = 40.5 % 34.1-44.9 4544-3) MCV (test code = 787-2) 92.9 fL 79.4-94.8 MCH (test code = 785-6) 30.3 pg 25.6-32.2 RDW (test code = 788-0) 12.6 % 11.7-14.4 Platelets (test code = 199 See_Comment [Aut omated message] 437-3) The system [employer] generated this result transmitted ref erence range: 150 - 45 0 K/CU MM. The referen ce range was not used to interpret this result as normal/abnor mal. MPV (test code = 10.3 fL 9.4-12.3 02122-8) nRBC (test code = 413) 0 See_Comment [Aut omated message] The system [employer] generated this result transmitted ref erence range: 0 - 0 /1 00 WBC. The reference r braden was not used to int erpret this result as normal/abnormal . % Neutros (test code = 62 % 429) % Lymphs (test code = 26 % 430) % Monos (test code = 8 % 431) % Eos (test code = 432) 4 % % Baso (test code = 1 % 437) # Neutros (test code = 2.88 See_Comment [Aut omated message] 670) The system [employer] generated this result transmitted ref erence range: 1.56 - 6 .13 K/L. The refe rence range was not u sed to interpret this result as normal/abnor mal. # Lymphs (test code = 1.20 See_Comment [Auto mated message] 414) The system [employer] generated this result transmitted ref erence range: 1.18 - 3 .74 K/L. The refe rence range was not u sed to interpret this result as normal/abnor mal. # Monos (test code = 0.35 See_Comment [Autom ated message] 415) The system [employer] generated this result transmitted ref erence range: 0.24 - 0 .36 K/L. The refe rence range was not u sed to interpret this result as normal/abnor mal. # Eos (test code = 416) 0.17 See_Comment [Au tomated message] The system [employer] generated this result transmitted ref erence range: 0.04 - 0 .36 K/L. The refe rence range was not u sed to interpret this result as normal/abnor mal. # Baso (test code = 0.03 See_Comment [Automa beatriz message] 417) The system [employer] generated this result transmitted ref erence range: 0.01 - 0 .08 K/L. The refe rence range was not u sed to interpret this result as normal/abnor mal. Immature 0 % 0-1 Granulocytes-Relative (test code = 2801) [facility] with platelet count + automated [id number] 06:44:41 Test Item Value Reference Range Interpretation Comments WBC (test code = 4.6 See_Comment [Automated message] 6690-2) The system [employer] generated this result transmitted ref erence range: 3.5 - 10 .5 K/L. The refe rence range was not u sed to interpret this result as normal/abnor mal. RBC (test code = 789-8) 4.36 See_Comment [Au tomated message] The system [employer] generated this result transmitted ref erence range: 3.93 - 5 .22 M/L. The refe rence range was not u sed to interpret this result as normal/abnor mal. MCHC (test code = 32.6 See_Comment [Automate d message] 786-4) The system [employer] generated this result transmitted ref erence range: 32.2 - 3 5.5 GM/DL. The refe rence range was not u sed to interpret this result as normal/abnor mal. Hematocrit (test code = 40.5 % 34.1-44.9 4544-3) MCV (test code = 787-2) 92.9 fL 79.4-94.8 MCH (test code = 785-6) 30.3 pg 25.6-32.2 RDW (test code = 788-0) 12.6 % 11.7-14.4 Platelets (test code = 199 See_Comment [Aut omated message] 777-3) The system [employer] generated this result transmitted ref erence range: 150 - 45 0 K/CU MM. The referen ce range was not used to interpret this result as normal/abnor mal. MPV (test code = 10.3 fL 9.4-12.3 74961-7) nRBC (test code = 413) 0 See_Comment [Aut omated message] The system [employer] generated this result transmitted ref erence range: 0 - 0 /1 00 WBC. The reference r braden was not used to int erpret this result as normal/abnormal . % Neutros (test code = 62 % 429) % Lymphs (test code = 26 % 430) % Monos (test code = 8 % 431) % Eos (test code = 432) 4 % % Baso (test code = 1 % 437) # Neutros (test code = 2.88 See_Comment [Aut omated message] 670) The system [employer] generated this result transmitted ref erence range: 1.56 - 6 .13 K/L. The refe rence range was not u sed to interpret this result as normal/abnor mal. # Lymphs (test code = 1.20 See_Comment [Auto mated message] 414) The system [employer] generated this result transmitted ref erence range: 1.18 - 3 .74 K/L. The refe rence range was not u sed to interpret this result as normal/abnor mal. # Monos (test code = 0.35 See_Comment [Autom ated message] 415) The system [employer] generated this result transmitted ref erence range: 0.24 - 0 .36 K/L. The refe rence range was not u sed to interpret this result as normal/abnor mal. # Eos (test code = 416) 0.17 See_Comment [Au tomated message] The system [employer] generated this result transmitted ref erence range: 0.04 - 0 .36 K/L. The refe rence range was not u sed to interpret this result as normal/abnor mal. # Baso (test code = 0.03 See_Comment [Automa beatriz message] 417) The system [employer] generated this result transmitted ref erence range: 0.01 - 0 .08 K/L. The refe rence range was not u sed to interpret this result as normal/abnor mal. Immature 0 % 0-1 Granulocytes-Relative (test code = 2801) [facility] with platelet count + automated [id number] 06:44:41 Test Item Value Reference Range Interpretation Comments WBC (test code = 4.6 See_Comment [Automated message] 6690-2) The system [employer] generated this result transmitted ref erence range: 3.5 - 10 .5 K/L. The refe rence range was not u sed to interpret this result as normal/abnor mal. RBC (test code = 789-8) 4.36 See_Comment [Au tomated message] The system [employer] generated this result transmitted ref erence range: 3.93 - 5 .22 M/L. The refe rence range was not u sed to interpret this result as normal/abnor mal. MCHC (test code = 32.6 See_Comment [Automate d message] 786-4) The system [employer] generated this result transmitted ref erence range: 32.2 - 3 5.5 GM/DL. The refe rence range was not u sed to interpret this result as normal/abnor mal. Hematocrit (test code = 40.5 % 34.1-44.9 4544-3) MCV (test code = 787-2) 92.9 fL 79.4-94.8 MCH (test code = 785-6) 30.3 pg 25.6-32.2 RDW (test code = 788-0) 12.6 % 11.7-14.4 Platelets (test code = 199 See_Comment [Aut omated message] 777-3) The system [employer] generated this result transmitted ref erence range: 150 - 45 0 K/CU MM. The referen ce range was not used to interpret this result as normal/abnor mal. MPV (test code = 10.3 fL 9.4-12.3 00675-7) nRBC (test code = 413) 0 See_Comment [Aut omated message] The system [employer] generated this result transmitted ref erence range: 0 - 0 /1 00 WBC. The reference r braden was not used to int erpret this result as normal/abnormal . % Neutros (test code = 62 % 429) % Lymphs (test code = 26 % 430) % Monos (test code = 8 % 431) % Eos (test code = 432) 4 % % Baso (test code = 1 % 437) # Neutros (test code = 2.88 See_Comment [Aut omated message] 670) The system [employer] generated this result transmitted ref erence range: 1.56 - 6 .13 K/L. The refe rence range was not u sed to interpret this result as normal/abnor mal. # Lymphs (test code = 1.20 See_Comment [Auto mated message] 414) The system [employer] generated this result transmitted ref erence range: 1.18 - 3 .74 K/L. The refe rence range was not u sed to interpret this result as normal/abnor mal. # Monos (test code = 0.35 See_Comment [Autom ated message] 415) The system [employer] generated this result transmitted ref erence range: 0.24 - 0 .36 K/L. The refe rence range was not u sed to interpret this result as normal/abnor mal. # Eos (test code = 416) 0.17 See_Comment [Au tomated message] The system [employer] generated this result transmitted ref erence range: 0.04 - 0 .36 K/L. The refe rence range was not u sed to interpret this result as normal/abnor mal. # Baso (test code = 0.03 See_Comment [Automa beatriz message] 417) The system [employer] generated this result transmitted ref erence range: 0.01 - 0 .08 K/L. The refe rence range was not u sed to interpret this result as normal/abnor mal. Immature 0 % 0-1 Granulocytes-Relative (test code = 2801) [facility] with platelet count + automated [id number] 06:44:41 Test Item Value Reference Range Interpretation Comments WBC (test code = 4.6 See_Comment [Automated message] 6690-2) The system [employer] generated this result transmitted ref erence range: 3.5 - 10 .5 K/L. The refe rence range was not u sed to interpret this result as normal/abnor mal. RBC (test code = 789-8) 4.36 See_Comment [Au tomated message] The system [employer] generated this result transmitted ref erence range: 3.93 - 5 .22 M/L. The refe rence range was not u sed to interpret this result as normal/abnor mal. MCHC (test code = 32.6 See_Comment [Automate d message] 786-4) The system [employer] generated this result transmitted ref erence range: 32.2 - 3 5.5 GM/DL. The refe rence range was not u sed to interpret this result as normal/abnor mal. Hematocrit (test code = 40.5 % 34.1-44.9 4544-3) MCV (test code = 787-2) 92.9 fL 79.4-94.8 MCH (test code = 785-6) 30.3 pg 25.6-32.2 RDW (test code = 788-0) 12.6 % 11.7-14.4 Platelets (test code = 199 See_Comment [Aut omated message] 777-3) The system [employer] generated this result transmitted ref erence range: 150 - 45 0 K/CU MM. The referen ce range was not used to interpret this result as normal/abnor mal. MPV (test code = 10.3 fL 9.4-12.3 03473-8) nRBC (test code = 413) 0 See_Comment [Aut omated message] The system [employer] generated this result transmitted ref erence range: 0 - 0 /1 00 WBC. The reference r braden was not used to int erpret this result as normal/abnormal . % Neutros (test code = 62 % 429) % Lymphs (test code = 26 % 430) % Monos (test code = 8 % 431) % Eos (test code = 432) 4 % % Baso (test code = 1 % 437) # Neutros (test code = 2.88 See_Comment [Aut omated message] 670) The system [employer] generated this result transmitted ref erence range: 1.56 - 6 .13 K/L. The refe rence range was not u sed to interpret this result as normal/abnor mal. # Lymphs (test code = 1.20 See_Comment [Auto mated message] 414) The system [employer] generated this result transmitted ref erence range: 1.18 - 3 .74 K/L. The refe rence range was not u sed to interpret this result as normal/abnor mal. # Monos (test code = 0.35 See_Comment [Autom ated message] 415) The system [employer] generated this result transmitted ref erence range: 0.24 - 0 .36 K/L. The refe rence range was not u sed to interpret this result as normal/abnor mal. # Eos (test code = 416) 0.17 See_Comment [Au tomated message] The system [employer] generated this result transmitted ref erence range: 0.04 - 0 .36 K/L. The refe rence range was not u sed to interpret this result as normal/abnor mal. # Baso (test code = 0.03 See_Comment [Automa beatriz message] 417) The system [employer] generated this result transmitted ref erence range: 0.01 - 0 .08 K/L. The refe rence range was not u sed to interpret this result as normal/abnor mal. Immature 0 % 0-1 Granulocytes-Relative (test code = 2801) [facility] with platelet count + automated [id number] 06:44:41 Test Item Value Reference Range Interpretation Comments WBC (test code = 4.6 See_Comment [Automated message] 6690-2) The system [employer] generated this result transmitted ref erence range: 3.5 - 10 .5 K/L. The refe rence range was not u sed to interpret this result as normal/abnor mal. RBC (test code = 789-8) 4.36 See_Comment [Au tomated message] The system [employer] generated this result transmitted ref erence range: 3.93 - 5 .22 M/L. The refe rence range was not u sed to interpret this result as normal/abnor mal. MCHC (test code = 32.6 See_Comment [Automate d message] 786-4) The system [employer] generated this result transmitted ref erence range: 32.2 - 3 5.5 GM/DL. The refe rence range was not u sed to interpret this result as normal/abnor mal. Hematocrit (test code = 40.5 % 34.1-44.9 4544-3) MCV (test code = 787-2) 92.9 fL 79.4-94.8 MCH (test code = 785-6) 30.3 pg 25.6-32.2 RDW (test code = 788-0) 12.6 % 11.7-14.4 Platelets (test code = 199 See_Comment [Aut omated message] 927-3) The system [employer] generated this result transmitted ref erence range: 150 - 45 0 K/CU MM. The referen ce range was not used to interpret this result as normal/abnor mal. MPV (test code = 10.3 fL 9.4-12.3 90299-8) nRBC (test code = 413) 0 See_Comment [Aut omated message] The system [employer] generated this result transmitted ref erence range: 0 - 0 /1 00 WBC. The reference r braden was not used to int erpret this result as normal/abnormal . % Neutros (test code = 62 % 429) % Lymphs (test code = 26 % 430) % Monos (test code = 8 % 431) % Eos (test code = 432) 4 % % Baso (test code = 1 % 437) # Neutros (test code = 2.88 See_Comment [Aut omated message] 670) The system [employer] generated this result transmitted ref erence range: 1.56 - 6 .13 K/L. The refe rence range was not u sed to interpret this result as normal/abnor mal. # Lymphs (test code = 1.20 See_Comment [Auto mated message] 414) The system [employer] generated this result transmitted ref erence range: 1.18 - 3 .74 K/L. The refe rence range was not u sed to interpret this result as normal/abnor mal. # Monos (test code = 0.35 See_Comment [Autom ated message] 415) The system [employer] generated this result transmitted ref erence range: 0.24 - 0 .36 K/L. The refe rence range was not u sed to interpret this result as normal/abnor mal. # Eos (test code = 416) 0.17 See_Comment [Au tomated message] The system [employer] generated this result transmitted ref erence range: 0.04 - 0 .36 K/L. The refe rence range was not u sed to interpret this result as normal/abnor mal. # Baso (test code = 0.03 See_Comment [Automa beatriz message] 417) The system [employer] generated this result transmitted ref erence range: 0.01 - 0 .08 K/L. The refe rence range was not u sed to interpret this result as normal/abnor mal. Immature 0 % 0-1 Granulocytes-Relative (test code = 2801) [facility] W/PLT COUNT & AUTO [id number] 06:44:41 Test Item Value Reference Range Interpretation Comments WHITE BLOOD CELL COUNT (BEAKER) 4.6 K/ L 3.5-10.5 (test code = 775) RED BLOOD CELL COUNT (BEAKER) 4.36 M/ L 3.93-5.22 (test code = 761) HEMOGLOBIN (BEAKER) (test code = 13.2 GM/DL 11.2-15.7 410) HEMATOCRIT (BEAKER) (test code = 40.5 % 34.1-44.9 411) MEAN CORPUSCULAR VOLUME (BEAKER) 92.9 fL 79.4-94.8 (test code = 753) MEAN CORPUSCULAR HEMOGLOBIN 30.3 pg 25.6-32.2 (BEAKER) (test code = 751) MEAN CORPUSCULAR HEMOGLOBIN CONC 32.6 GM/DL 32.2-35.5 (BEAKER) (test code = 752) RED CELL DISTRIBUTION WIDTH 12.6 % 11.7-14.4 (BEAKER) (test code = 412) PLATELET COUNT (BEAKER) (test 199 K/CU MM 150-450 code = 756) MEAN PLATELET VOLUME (BEAKER) 10.3 fL 9.4-12.3 (test code = 754) NUCLEATED RED BLOOD CELLS 0 /100 WBC 0-0 (BEAKER) (test code = 413) NEUTROPHILS RELATIVE PERCENT 62 % (BEAKER) (test code = 429) LYMPHOCYTES RELATIVE PERCENT 26 % (BEAKER) (test code = 430) MONOCYTES RELATIVE PERCENT 8 % (BEAKER) (test code = 431) EOSINOPHILS RELATIVE PERCENT 4 % (BEAKER) (test code = 432) BASOPHILS RELATIVE PERCENT 1 % (BEAKER) (test code = 437) NEUTROPHILS ABSOLUTE COUNT 2.88 K/ L 1.56-6.13 (BEAKER) (test code = 670) LYMPHOCYTES ABSOLUTE COUNT 1.20 K/ L 1.18-3.74 (BEAKER) (test code = 414) MONOCYTES ABSOLUTE COUNT (BEAKER) 0.35 K/ L 0.24-0.36 (test code = 415) EOSINOPHILS ABSOLUTE COUNT 0.17 K/ L 0.04-0.36 (BEAKER) (test code = 416) BASOPHILS ABSOLUTE COUNT (BEAKER) 0.03 K/ L 0.01-0.08 (test code = 417) IMMATURE GRANULOCYTES-RELATIVE 0 % 0-1 PERCENT (BEAKER) (test code = 2801) POC-Glucose [id number] 06:13:35 Test Item Value Reference Range Interpretation Comments POC-Glucose Meter (test 110 mg/dL 70-110 : TE STED AT [facility] code = 1538) [address] [facility], 770 30: Aerophysics Engineer/Techni radhika ID = [id number] for SHERLY JEFFREY Lab Interpretation (test Normal code = 25710-3) [facility]-Glucose [id number] 06:13:35 Test Item Value Reference Range Interpretation Comments POC-Glucose Meter (test 110 mg/dL 70-110 : TE STED AT [facility] code = 1538) [address] [place] [address], 770 30: Aerophysics Engineer/Techni radhika ID = [id number] for EDWARD JEFFREYARA Lab Interpretation (test Normal code = 35411-6) [facility]-Glucose [id number] 06:13:35 Test Item Value Reference Range Interpretation Comments POC-Glucose Meter (test 110 mg/dL 70-110 : TE STED AT [facility] code = 1538) [address] [place] [address], 770 30: Aerophysics Engineer/Techni radhika ID = [id number] for SHERLY JEFFREY Lab Interpretation (test Normal code = 46366-6) [facility]-Glucose [id number] 06:13:35 Test Item Value Reference Range Interpretation Comments POC-Glucose Meter (test 110 mg/dL 70-110 : TE STED AT [facility] code = 1538) [address] [place] [address], 770 30: Aerophysics Engineer/Techni radhika ID = [id number] for SHERLY JEFFREY Lab Interpretation (test Normal code = 04645-8) [facility]-Glucose [id number] 06:13:35 Test Item Value Reference Range Interpretation Comments POC-Glucose Meter (test 110 mg/dL 70-110 : TE STED AT [facility] code = 1538) [address] [place] [address], 770 30: Aerophysics Engineer/Techni radhika ID = [id number] for EDWARD JEFFREYARA Lab Interpretation (test Normal code = 56861-0) [facility]-GLUCOSE [id number] 06:13:35 Test Item Value Reference Range Interpretation Comments POC-GLUCOSE METER 110 mg/dL 70-110 : TESTED A T [facility] 6720 (FRANCINE) (test code = [place], 1538) [address]: Aerophysics Engineer/Techni radhika ID = [id number] for SHERLY GARRISON RAD, CHEST, 2 [id number] 11:46:00Reason for Exam:->R07.9 [facility] 1950 Sex: FFINAL REPORTPATIENT ID: [id number] HISTORY: [id number] COMPARISON: None FINDINGS: The lungs are clear. No pleural effusions or pneumothorax. The heart shadow is normal in size. Left subclavian transvenous cardiac pacing hardware is present, with leads in the region of the right HM and right ventricle. The thoracic aortais mildly tortuous. Degenerative changes are present in the spine. IMPRESSION: No evidence of acute cardiopulmonary disease. Signed: Derrick Paz MDReport Verified Date/Time: 08/16/2021 11:46:16 Reading Location: [facility] Radiology Reading Room XR WRIST <3 VW [id number] 22:38:12Distal radius fracture healing in acceptable [facility] [id number] 19:34:03 Impacted transverse fracture of the left distal radius there is no volar or dorsal angulation there is no ulnar or radial angulation the fracture appears quite stable.[facility] VW [id number] 15:18:36Transverse fracture of distal radius nondisplaced impacted with no volar or dorsal angulation. ?[facility]
[2022-10-12] MEDS ORDERED: TETRACAINE HCL 0.5% 4ML OPTH ONE (23:09)
[2022-10-12] MEDS ORDERED: FLUORESCEIN SODIUM 1 MG/WRAP ONE (23:09)
--- NOTE | 2022-10-12 23:23 | ER ---
Nurse's Notes [facility] Name: Bhakti Frye Age: 71 yrs Sex: Female : 1950 Arrival Date: 10/12/2022 Time: 22:14 Bed 5 Private MD: Diagnosis: Unspecified acute conjunctivitis, left eye;Left conjunctival abrasion, left conjunctival edema, Presentation: 10/12 22:54 Chief complaint: Patient states: I have a contact stuck in my left eye. I put it in kd3 this morning and i had accidently used my hydrogen peroxide solution and it is very irrigated. So it may not be in there anymore. Coronavirus screen: Vaccine status: Patient reports receiving the 2nd dose of the covid vaccine. Ebola Screen: No symptoms or risks identified at this time. Initial Sepsis Screen: Does the patient meet any 2 criteria? No. Patient's initial sepsis screen is negative. Does the patient have a suspected source of infection? No. Patient's initial sepsis screen is negative. Risk Assessment: Do you want to hurt yourself or someone else? Patient reports no desire to harm self or others. Onset of symptoms was October 12, 2022. 22:54 Method Of Arrival: Ambulatory kd3 22:54 Acuity: SALMA 3 kd3 Triage Assessment: 22:57 General: Appears uncomfortable, Behavior is calm, cooperative. Pain: Complains of pain kd3 in left eye. 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 - Social history:: Smoking status: Patient denies any tobacco usage or history of. - Family history:: not pertinent. Screenin:05 [facility] ED Fall Risk Assessment (Adult) Score/Fall Risk Level 0 - 2 = Low Risk. Abuse eh3 screen: Denies threats or abuse. Denies injuries from another. Nutritional screening: No deficits noted. Tuberculosis screening: No symptoms or risk factors identified. Assessment: 23:05 General: Appears in no apparent distress. uncomfortable, Behavior is calm, cooperative, eh3 appropriate for age. Pain: Complains of pain in left eye. Neuro: Level of Consciousness is awake, alert, obeys commands, Oriented to person, place, time, situation. Cardiovascular: Capillary refill < 3 seconds Patient's skin is warm and dry. Respiratory: Airway is patent Respiratory effort is even, unlabored, Respiratory pattern is regular, symmetrical. GI: No signs and/or symptoms were reported involving the gastrointestinal system. Abdomen is round non-distended. : No signs and/or symptoms were reported regarding the genitourinary system. EENT: Sclera/Cornea are reddened in outer aspect of conjuctiva of left eye and inner aspect of conjunctiva of left eye. Derm: Skin is pink, warm \T\ dry. Musculoskeletal: No signs and/or symptoms reported regarding the musculoskeletal system. Vital Signs: 22:54 Pulse 68; Resp 17; Temp 98(O); Pulse Ox 98% ; Weight 60.33 kg; Height 5 ft. 4 in. ; kd3 22:59 BP 151 / 90; kd3 22:54 Body Mass Index 22.83 (60.33 kg, 162.56 cm) kd3 ED Course: 22:14 Patient arrived in ED. ja2 22:38 Ankit Palma MD is Attending Physician. sp4 22:57 Triage completed. kd3 22:57 Arm band placed on right wrist. kd3 23:02 Aria Bedolla, SARINA is Primary Nurse. eh3 23:05 Patient has correct armband on for positive identification. Bed in low position. Call 3 light in reach. Side rails up X2. 23:22 Madan Lazo MD is Referral Physician. sp4 23:33 No provider procedures requiring assistance completed. Patient did not have IV access vc1 during this emergency room visit. Administered Medications: 22:45 Drug: Tetracaine Ophthalmic Drops 0.5 % 1 drops {Note: administered by Dr. Palma.} eh3 Route: Ophthalmic; Site: left eye; 23:29 Follow up: Response: No adverse reaction eh3 23:33 Drug: Ibuprofen PO 400 mg Route: PO; vc1 23:33 Follow up: Response: No adverse reaction; Medication administered at discharge. vc1 23:33 Not Given (Physician Discretion): Tobramycin-Dexamethasone Ophthalmic Drops (0.3 %-0.1 vc1 %) 2 drops Ophthalmic once; into left eye 23:33 Not Given (Physician Discretion): Vigamox Ophthalmic Drops 0.5 % 2 drops Ophthalmic oncevc1 Medication: 23:34 VIS not applicable for this client. vc1 Outcome: 23:23 Discharge ordered by . sp4 23:33 Discharged to home ambulatory, with significant other. vc1 23:33 Condition: good 23:33 Discharge instructions given to patient, Instructed on discharge instructions, follow up and referral plans. medication usage, Demonstrated understanding of instructions, follow-up care, medications, Prescriptions given X 1. 23:34 Patient left the ED. vc1 Signatures: Norah Mc2 Pia Garibay RN RN kd3 Carmenza Ruvalcaba RN RN vc1 Aria Bedolla RN RN eh3 Ankit Palma MD MD sp4
--- NOTE | 2022-10-12 23:23 | EDPHYS ---
Physician Documentation [facility] Name: Bhakti Frye Age: 71 yrs Sex: Female : 1950 Arrival Date: 10/12/2022 Time: 22:14 Bed 5 Private MD: ED Physician Ankit Palma HPI: 10/12 22:38 This 71 yrs old Female presents to ER via Unassigned with complaints of sp4 Foreign Body In Eye. 23:15 71-year-old female presents with acute left eye irritation and pain starting this sp4 afternoon. Patient thinks that there may be a contact lens embedded in the eye.. 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 - Social history:: Smoking status: Patient denies any tobacco usage or history of. - Family history:: not pertinent. ROS: 23:16 Constitutional: Negative for fever, chills, and weight loss, left eye pain or redness sp4 and irritation Eyes: Positive for irritation, pain, redness, and discharge, in the left eye. Right eye is normal ENT: Negative for injury, pain, and discharge, Neck: Negative for injury, pain, and swelling, Cardiovascular: Negative for chest pain, palpitations, and edema. 23:16 All other systems are negative. Exam: 23:16 Visual Acuity: I have reviewed the nursing documentation. sp4 23:16 Constitutional: This is a well developed, well nourished patient who is awake, alert, and in no acute distress. Head/Face: Normocephalic, atraumatic. 23:16 ENT: Nares patent. No nasal discharge, no septal abnormalities noted. Tympanic membranes are normal and external auditory canals are clear. Oropharynx with no redness, swelling, or masses, exudates, or evidence of obstruction, uvula midline. Mucous membranes moist. Neck: Trachea midline, no thyromegaly or masses palpated, and no cervical lymphadenopathy. Supple, full range of motion without nuchal rigidity, or vertebral point tenderness. No Meningismus. Chest/axilla: Normal chest wall appearance and motion. Nontender with no deformity. No lesions are appreciated. Cardiovascular: Regular rate and rhythm with a normal S1 and S2. No gallops, murmurs, or rubs. Normal PMI, no JVD. No pulse deficits. Respiratory: Lungs have equal breath sounds bilaterally, clear to auscultation and percussion. No rales, rhonchi or wheezes noted. No increased work of breathing, no retractions or nasal flaring. Abdomen/GI: Soft, non-tender, with normal bowel sounds. No distension or tympany. No guarding or rebound. No evidence of tenderness throughout. Back: No spinal tenderness. No costovertebral tenderness. Skin: Warm, dry with normal turgor. Normal color with no rashes, no lesions, and no evidence of cellulitis. MS/ Extremity: Pulses equal, no cyanosis. Neurovascular intact. Full, normal range of motion. Neuro: Awake and alert, GCS 15, oriented to person, place, time, and situation. Cranial nerves II-XII grossly intact. Motor strength 5/5 in all extremities. Sensory grossly intact. Psych: Awake, alert, with orientation to person, place and time. Behavior, mood, and affect are within normal limits 23:16 Eyes: Pupils: equal, round, and reactive to light and accomodation, Extraocular movements: intact throughout, Conjunctiva: injected, in the left eye, tearing noted, in left eye, Left conjunctival irritation, conjunctival abrasions, and conjunctival edema. Right eye exam is normal. Corneas: no acute changes, no evidence of abrasion, no foreign body, funduscopic exam reveals no obvious abnormalities, Visual kendall: are intact. Vital Signs: 22:54 Pulse 68; Resp 17; Temp 98(O); Pulse Ox 98% ; Weight 60.33 kg; Height 5 ft. 4 in. ; kd3 22:59 BP 151 / 90; kd3 22:54 Body Mass Index 22.83 (60.33 kg, 162.56 cm) kd3 MDM: 22:39 Patient medically screened. sp4 23:16 Differential diagnosis: Corneal abrasion of Corneal ulcer of Foreign body in Data sp4 reviewed: vital signs, nurses notes. ED course: Left eye examination reveals no foreign body, no contact lens on exam, significant irritation, conjunctival edema, significant conjunctival abrasions, presumably from rubbing the eye. No exudates. Patient advised to use tobramycin eyedrops every 4 hours while awake for the next 5 days. See head baggage porter for worsening eye redness pain or discharge. 10/12 22:38 Order name: Eye Tray; Complete Time: 23:05 sp4 10/12 22:38 Order name: Fluoresene Opth strip; Complete Time: 23:05 sp4 Administered Medications: 22:45 Drug: Tetracaine Ophthalmic Drops 0.5 % 1 drops {Note: administered by Dr. Palma.} eh3 Route: Ophthalmic; Site: left eye; 23:29 Follow up: Response: No adverse reaction eh3 23:33 Drug: Ibuprofen PO 400 mg Route: PO; vc1 23:33 Follow up: Response: No adverse reaction; Medication administered at discharge. vc1 23:33 Not Given (Physician Discretion): Tobramycin-Dexamethasone Ophthalmic Drops (0.3 %-0.1 vc1 %) 2 drops Ophthalmic once; into left eye 23:33 Not Given (Physician Discretion): Vigamox Ophthalmic Drops 0.5 % 2 drops Ophthalmic oncevc1 Disposition Summary: 10/12/22 23:23 Discharge Ordered Location: Home sp4 Problem: new sp4 Symptoms: have improved sp4 Condition: Stable sp4 Diagnosis - Unspecified acute conjunctivitis, left eye sp4 - Left conjunctival abrasion, left conjunctival edema, sp4 Followup: sp4 - With: Madan Lazo MD - When: 1 - 2 days - Reason: Recheck today's complaints Discharge Instructions: - Discharge Summary Sheet sp4 - How to Use Eye Drops and Eye Ointments sp4 Forms: - Thank You Letter sp4 - Antibiotic Education sp4 Prescriptions: - TobraDex 0.3-0.1 % Ophthalmic drops, suspension - instill 2 drop by OPHTHALMIC route every 4 hours for 5 days into left eye; 5 sp4 milliliter; Refills: 0, Product Selection Permitted Signatures: Pia Garibay RN RN kd3 Carmenza Ruvalcaba RN RN vc1 Aria Bedolla RN RN 3 Ankit Palma MD MD sp4
[2022-10-12] MEDS ORDERED: IBUPROFEN 400 MG TAB ONE (23:30)
[2022-10-13 00:24] VITALS: TEMP 98; O2SAT 98
[2022-10-13 00:25] VITALS: BP 151/90
== END 2022-10-12 23:34 | disposition home or self-care (01) ==
LOC: ER 22:09
DX: H10.32 Unspecified acute conjunctivitis, left eye (principal); S05.02XA Injury of conjunctiva and corneal abrasion without foreign body, left eye, initial encounter; H11.422 Conjunctival edema, left eye; I10 Essential (primary) hypertension; Z95.0 Presence of cardiac pacemaker; Z88.5 Allergy status to narcotic agent
CPT/HCPCS: 99283